=== PATIENT | male | born 1950 | race Caucasian/White ===

== ENCOUNTER 2016-10-31 17:36 | Inpatient (IN) | payer MEDICARE ==
[~2016-10-31] VITALS: Ht 167.6 cm; Wt 140.5 kg
[~2016-10-31 17:36] MED LIST: ASPI81TA2 PO; FURO-154 PO; GEMF600T3 PO; INSU100I3 SQ; INSU100V8 SQ; LISI-621 PO; METO50TA5 PO; NITR0.4T39 SL; SIMV20TA6 PO; WARF5TAB6 PO
--- OUTSIDE RECORDS SUMMARY | 2016-10-31 17:40 | XMS REPORT | Referral Summary ---
Author Author [facility] Organization [facility] Address Unknown Phone Unavailable Care Team Providers Care Centrifugal Casting Machine Tender Name Role Phone Afia Cosby Primary Care Physician [phone] Encounter VC Date(s): 07/07/16 - 07/07/16 [facility] [address] [place] [address] [place] [address]- Discharge Diagnosis: Family history of colon cancer Discharge Disposition: -Home or Self Care Attending Physician: Easton Rick MD Admitting Physician: Easton Rick MD Referring Physician: Dominik Cosby MD Vital Signs Most recent to 1 oldest [Reference Range]: Peripheral Pulse 80 bpm Rate [60-100 bpm] (07/07/16 9:21 AM) Respiratory Rate 18 br/min [14-20 br/min] (07/07/16 9:21 AM) Blood Pressure 128/78 mmHg [90-140/60-90 mmHg] (07/07/16 9:21 AM) SpO2 97 % (07/07/16 9:21 AM) Problem List Condition Effective Dates Status Health Status Informant Ankle < 03/13/14 Resolved sprain(Confirmed) Anticoagulant < 03/13/14 Resolved long-term use(Confirmed) Atrial fibrillation Active (disorder)(Confirmed ) Atrial Active fibrillation(Confirm ed) Backache Active (finding)(Confirmed) Benign essential Resolved hypertension (disorder)(Confirmed ) Benign Active hypertension(Confirm ed) Chronic back Active pain(Confirmed) Coronary Active arteriosclerosis (disorder)(Confirmed ) Coronary Active arteriosclerosis(Con firmed) Coronary artery < 03/13/14 Resolved disease(Confirmed) Heart Active disease(Confirmed) High Active cholesterol(Confirme d) Morbid Active obesity(Confirmed) Morbid < 11/27/14 Resolved obesity(Confirmed) Obesity Active (disorder)(Confirmed ) Obesity(Confirmed) < 03/13/14 Resolved Pure Active hypercholesterolemia (disorder)(Confirmed ) Pure < 03/13/14 Resolved hypercholesterolemia (Confirmed) Sprain of ankle Resolved (disorder)(Confirmed ) Type 2 < 03/13/14 Resolved diabetes(Confirmed) Allergies, Adverse Reactions, Alerts No Known Medication Allergies Medications aspirin 81 mg oral tablet, chewable 1 tabs, Oral, Daily, # 30 tabs, 0 Refill(s) Start Date: 12/11/13 Status: Ordered Colcrys 0.6 mg oral tablet See Instructions, 1 tabs Oral BID, # 20 tabs, eRx: [id number], 1 tabs Oral BID Start Date: 05/02/15 Status: Ordered furosemide 20 mg oral tablet 20 mg 1 tabs, Oral, Daily, # 90 tabs, 3 Refill(s), Pharmacy: [facility], 1 tabs Oral Daily Start Date: 04/15/16 Status: Ordered gemfibrozil 600 mg oral tablet 600 mg 1 tabs, Oral, BID, # 180 tabs, 3 Refill(s), Pharmacy: [facility], 1 tabs Oral BID Start Date: 04/15/16 Status: Ordered Lantus 100 units/mL subcutaneous solution See Instructions, INJECT 44 UNITS SUB-Q DAILY FOR DIABETES, # 10 mL, 5 Refill(s) , Pharmacy: [facility] Start Date: 04/27/16 Status: Ordered lisinopril 20 mg oral tablet 20 mg 1 tabs, Oral, Daily, # 90 tabs, 3 Refill(s), Pharmacy: [facility] Start Date: 04/15/16 Status: Ordered Metoprolol Tartrate 50 mg oral tablet 50 mg 1 tabs, Oral, BID, # 180 tabs, 3 Refill(s), Pharmacy: [facility], 1 tabs Oral BID Start Date: 04/15/16 Status: Ordered nitroglycerin 0.4 mg sublingual tablet 1 tabs, SubLingual, q5min, as needed for chest pain, # 25 tabs, 0 Refill(s), Pharmacy: [facility], 1 tabs SubLingual q5min,PRN:as needed for chest pain Start Date: 08/02/14 Status: Ordered NovoLOG 12 units, SubCutaneous, TIDAC, 0 Refill(s) Start Date: 04/28/16 Status: Ordered simvastatin 40 mg oral tablet 20 mg 0.5 tabs, Oral, Daily, # 45 tabs, 3 Refill(s), Pharmacy: [facility], 0.5 tabs Oral Daily Start Date: 04/15/16 Status: Ordered warfarin 1 mg oral tablet See Instructions, PT TAKES 9MG 3 days a week and 8mg 4 days a week, # 288 tabs , 1 Refill(s), Pharmacy: [facility], PT TAKES 9MG 3 days a week and 8mg 4 days a week Start Date: 04/15/16 Status: Ordered warfarin 1 mg oral tablet See Instructions, PT TAKES 9MG 2 days a week and 8mg 5 days a week, # 288 tabs , 1 Refill(s), Pharmacy: [facility], PT TAKES 9MG 2 days a week and 8mg 5 days a week Start Date: 10/21/15 Status: Ordered warfarin 5 mg oral tablet 5 mg 1 tabs, Oral, Daily, PT TAKES 9MG 3 DAYS AND 8MG 4 DAYS A WEEK, # 90 tabs, 1 Refill(s), Pharmacy: [facility], 1 tabs Oral Daily,Instr: PT TAKES 9MG 3 DAYS AND 8MG 4 DAYS A WEEK Start Date: 04/15/16 Status: Ordered Results No data available for this section Immunizations Given and Recorded Vaccine Date Status Refusal Reason tetanus/diphth/pertuss (Tdap) adult/adol 08/06/08 Recorded hepatitis B adult vaccine 07/06/12 Given hepatitis B adult vaccine 04/05/12 Given hepatitis B adult vaccine 01/06/12 Given influenza virus vaccine, inactivated 04/27/16 Given influenza virus vaccine, live 05/09/13 Given influenza virus vaccine, live 04/05/12 Given pneumococcal 13-valent conjugate vaccine 04/27/16 Given pneumococcal 23-polyvalent vaccine 11/05/09 Recorded Procedures Procedure Date Related Diagnosis Body Site Knee replacement - R1 Procedure - Anitcoagulation Removal - Benign cyst removed from back 1Bilat Social History Social History Type Response Smoking Status Former smoker; Type: Cigarettes Assessment and Plan Extracted from: Title: Office Visit Note Author: Easton Rick MD Date: 07/07/16 Assessment/Plan 1.Family history of colon cancer Ordered: Office Visit Level 4 New [id number] Plan: Colonoscopy. I did review the patient's chart including office note performed by his PCPfrom April 27, 2016. I informed the patient that with his family history for colon cancerand the fact that has been more than 10 years since his lastendoscopic evaluation of his colonI would recommend proceeding with repeat colonoscopy at this point in time. I did review a prior colonoscopy report from February 11, 2016. Colonoscopy was normal. I informed the patient that he will need to be off of his Coumadina few days prior to his procedure. I do not feel that we need to bridge the patientwith Lovenox. Risk of endoscopy was discussed with the patient. Risks include but are not inclusive of bleeding and/or perforation requiring surgery. Patient understood and was scheduled.
--- OUTSIDE RECORDS SUMMARY | 2016-10-31 17:40 | XMS REPORT | Referral Summary ---
Author Author [facility] Organization [facility] Address Unknown Phone Unavailable Care Team Providers Care Software Quality Assurance Specialist Name Role Phone Afia Cosby Primary Care Physician [phone] Encounter VC Date(s): 04/27/16 - 04/27/16 [facility] [address] [place] [address]- Discharge Diagnosis: Atrial fibrillation Discharge Diagnosis: Gout Discharge Diagnosis: Morbid obesity Discharge Diagnosis: FH: colon cancer Discharge Diagnosis: Benign hypertension Discharge Diagnosis: High cholesterol Discharge Diagnosis: Backache (finding) Discharge Diagnosis: DM (diabetes mellitus), type 2, uncontrolled Discharge Diagnosis: Anticoagulant long-term use Discharge Diagnosis: Coronary arteriosclerosis Discharge Disposition: 01-Home or Self Care Attending Physician: Dominik Cosby MD Admitting Physician: Dominik Cosby MD Vital Signs Most recent to 1 oldest [Reference Range]: Peripheral Pulse 80 bpm Rate [60-100 bpm] (04/27/16 2:43 PM) Blood Pressure 126/80 mmHg [90-140/60-90 mmHg] (04/27/16 2:43 PM) Problem List Condition Effective Dates Status Health [...] tabs Oral BID, # 20 tabs, eRx: [id number], 1 tabs Oral BID Start Date: 05/02/15 Status: Ordered furosemide 20 mg oral tablet 20 mg 1 tabs, Oral, Daily, # 90 tabs, 3 Refill(s), Pharmacy: [facility], 1 tabs Oral Daily Start Date: 04/15/16 Status: Ordered gemfibrozil 600 mg oral tablet 600 mg 1 tabs, Oral, BID, # 180 tabs, 3 Refill(s), Pharmacy: [facility], 1 tabs Oral BID Start Date: 04/15/16 Status: Ordered Lantus 100 units/mL subcutaneous solution See Instructions, INJECT 42 UNITS SUB-Q DAILY FOR DIABETES, # 10 mL, 5 Refill(s) , Pharmacy: [facility], INJECT 42 UNITS SUB-Q DAILY FOR DIABETES Start Date: 04/27/16 Status: Ordered lisinopril 20 mg oral tablet 20 mg 1 tabs, Oral, Daily, # 90 tabs, 3 Refill(s), Pharmacy: [facility] Start Date: 04/15/16 Status: Ordered Metoprolol Tartrate 50 mg oral tablet 50 mg 1 tabs, Oral, BID, # 180 tabs, 3 Refill(s), Pharmacy: [facility], 1 tabs Oral BID Start Date: 04/15/16 Status: Ordered nitroglycerin 0.4 mg sublingual tablet 1 tabs, SubLingual, q5min, as needed for chest pain, # 25 tabs, 0 Refill(s), Pharmacy: [facility], 1 tabs SubLingual q5min,PRN:as needed for chest pain Start Date: 08/02/14 Status: Ordered NovoLOG 100 units/mL subcutaneous solution 9 units, SubCutaneous, TIDAC, 10 units TID, # 3 mL, 3 Refill(s), Pharmacy: [facility], 9 units SubCutaneous TIDAC Start Date: 12/24/14 Status: Ordered simvastatin 40 mg oral tablet 20 mg 0.5 tabs, Oral, Daily, # 45 tabs, 3 Refill(s), Pharmacy: [facility], 0.5 tabs Oral Daily Start Date: 04/15/16 Status: Ordered warfarin 1 mg oral tablet See Instructions, PT TAKES 9MG 3 days a week and 8mg 4 days a week, # 288 tabs , 1 Refill(s), Pharmacy: [facility], PT TAKES 9MG 3 days a week and 8mg 4 days a week Start Date: 04/15/16 Status: Ordered warfarin 1 mg oral tablet See Instructions, PT TAKES 9MG 2 days a week and 8mg 5 days a week, # 288 tabs , 1 Refill(s), Pharmacy: [facility], PT TAKES 9MG 2 days a week and 8mg 5 days a week Start Date: 10/21/15 Status: Ordered warfarin 5 mg oral tablet 5 mg 1 tabs, Oral, Daily, PT TAKES 9MG 3 DAYS AND 8MG 4 DAYS A WEEK, # 90 tabs, 1 Refill(s), Pharmacy: [facility], 1 tabs Oral Daily,Instr: PT TAKES 9MG 3 DAYS AND 8MG 4 DAYS A WEEK Start Date: 04/15/16 Status: Ordered Results Coagulation Most recent to 1 oldest [Reference Range]: PT Venous (04/27/16 3:58 PM) INR [0.8-1.2] 3.8 1 *HI* (04/27/16 3:58 PM) 1Result Comment: Normal (no anticoagulant): 0.8 - 1.2 Units Routine Therapeutic Range: 2.0 - 3.0 Units High Risk Therapeutic Range: 2.5 - 3.5 Units Chemistry Most recent to 1 oldest [Reference Range]: Sodium Lvl [135-144 136 mEq/L mEq/L] (04/27/16 3:58 PM) Potassium Lvl 4.2 mEq/L [3.5-5.2 mEq/L] (04/27/16 3:58 PM) Chloride [99-111 102 mEq/L mEq/L] (04/27/16 3:58 PM) CO2 [23-31 mEq/L] 23 mEq/L (04/27/16 3:58 PM) AGAP [3-20] 11 (04/27/16 3:58 PM) BUN [8-26 mg/dL] 26 mg/dL (04/27/16 3:58 PM) Glucose Lvl [70-99 392 mg/dL mg/dL] *HI* (04/27/16 3:58 PM) Creatinine Lvl 1.34 mg/dL [0.72-1.25 mg/dL] *HI* (04/27/16 3:58 PM) eGFR [>60 mL/min] 53 mL/min 1 *ABN* (04/27/16 3:58 PM) Calcium Lvl 10.2 mg/dL [8.9-10.5 mg/dL] (04/27/16 3:58 PM) Uric Acid [3.5-7.2 7.9 mg/dL mg/dL] *HI* (04/27/16 3:58 PM) Total CK [30-200 103 U/L U/L] (04/27/16 3:58 PM) Hgb A1c [4.1-5.6 %] 10.0 % *HI* (04/27/16 3:58 PM) eAvg Glucose 240.3 mg/dL (04/27/16 3:58 PM) 1Result Comment: Multiply eGFR results by 1.21 for race. Immunizations Vaccine Date Refusal Reason tetanus/diphth/pertuss (Tdap) adult/adol 08/06/08 hepatitis B adult vaccine 07/06/12 hepatitis B adult vaccine 04/05/12 hepatitis B adult vaccine 01/06/12 influenza virus vaccine, inactivated 04/27/16 influenza virus vaccine, live 05/09/13 influenza virus vaccine, live 04/05/12 pneumococcal 13-valent conjugate vaccine 04/27/16 pneumococcal 23-polyvalent vaccine 11/05/09 Procedures Procedure Date Related Diagnosis Body Site Knee replacement - R1 Procedure - Anitcoagulation Removal - Benign cyst removed from back 1Bilat Social History Social History Type Response Smoking Status Former smoker; Type: Cigarettes Assessment and Plan Extracted from: Title: CRMMP Author: Dominik Cosby MD Date: 04/27/16 Impression and Plan Diagnosis DM (diabetes mellitus), type 2, uncontrolled (QWM96-DQ E11.65, Discharge, Medical). Benign hypertension (TXF90-QT I10, Discharge, Medical). High cholesterol (UMX93-TA E78.00, Discharge, Medical). Atrial fibrillation (DHT74-YQ I48.91, Discharge, Medical). Anticoagulant long-term use (GFN20-LM Z79.01, Discharge, Medical). Coronary arteriosclerosis (LAI05-SD I25.10, Discharge, Medical). Gout (JHY21-QT M10.9, Discharge, Medical). Backache (finding) (UJG61-JF M54.9, Discharge, Medical). Morbid obesity (TVG32-KX E66.01, Discharge, Medical). Orders Orders (Selected) Outpatient Orders Future (On Hold) Albumin/Creatinine Ratio, Urine: Albumin/Creatinine Ratio, Urine: BMP: CPK: Hgb A1c: Hgb A1c: PT/INR: Uric Acid: .
--- OUTSIDE RECORDS SUMMARY | 2016-10-31 17:40 | XMS REPORT | Continuity of Care Document ---
Author Author [facility] Organization [facility] Address Unknown Phone Unavailable Allergies Active Description Code Type Severity Reaction Onset Reported/Identified Relationship to Patient Clinical Status Yes No Known Medication Allergies NKMA N/A N/A 12/11/2013 Medications Problems Procedures Results Test Result Range Hemoglobin A1C - 10/26/16 10:00 Hemoglobin A1C 9.2 % 4.1-5.6 Estimated Average Glucose - 10/26/16 10:00 Estimated Average Glucose 217.3 mg/dL Encounters ACCT No. Visit Date/Time Discharge Status Pt. Type Provider Facility Loc./Unit Complaint [id number] 09/07/2013 08:32:00 09/07/2013 23 :59:59 CLS Outpatient [id number] 08/27/2013 16:10:00 08/27/2013 23 :59:59 CLS Outpatient [id number] 08/10/2013 10:44:00 08/10/2013 23 :59:59 CLS Outpatient
--- OUTSIDE RECORDS SUMMARY | 2016-10-31 17:41 | XMS REPORT | Continuity of Care Document ---
Author Author [facility] Organization [facility] Address Unknown Phone Unavailable Care Team Providers Care Scrap Kettle Tender Name Role Phone CORNELIUS MAYERS MD Primary Care Physician [phone] Insurance Providers Guarantor Yvrose Singh Address [address] [place] [address] Email DENIED/07/11/16 Payer [employer] Policy Number [id number] Subscriber's Name Yvrose Singh Relationship 18 Self Advance Directives Directive Response Recorded Date/Time Ordered Resuscitation Status Full Code 07/09/16 2:27pm Resuscitation Documents on File No 07/12/16 7:52am DPOA for Healthcare Only No 07/12/16 7:52am Living Will No 07/12/16 7:52am Problems Active Problems Medical Problem Onset Date Status Afib Unknown Chronic CAD (coronary artery disease) Unknown Chronic Dehydration Unknown Acute Gait instability Unknown Acute HLD (hyperlipidemia) Unknown Chronic HTN (hypertension) Unknown Chronic History of CVA (cerebrovascular accident) Unknown Chronic History of [place] (myocardial infarction) Unknown Chronic Hyperglycemia Unknown Acute Hypokalemia Unknown Acute Osteoarthritis Unknown Acute Stroke-like symptoms Unknown Acute Uncontrolled type 2 diabetes mellitus with complication Unknown Chronic Medications Current Home Medications Medication Dose Units Route Directions Days Qty Instructions Start Date Aspirin 81 Mg Tab.chew 1 Tab Oral Daily 07/12/16 Furosemide (Lasix) 20 Mg Tablet 1 Tab Oral Daily 12/13/14 Gemfibrozil 600 Mg Tablet 1 Tab Oral Ac 30 Minutes Twice A Day Insulin Aspart (Novolog Flexpen) 1 Unit Pen 12 Unit Sub-Q Before Meals 07/12/16 Insulin Glargine,Hum.rec.anlog (Lantus) 100 Unit/Ml Inj 40 Unit Sub-Q Bedtime 30 Days 12/16/14 Lisinopril 20 Mg Tablet 1 Tab Oral Daily 12/13/14 Metoprolol Tartrate 50 Mg Tablet 50 Mg Oral Twice Daily With Meals Take 1 tablet, by mouth, 2 times a day with meals. 12/13/14 Nitroglycerin 0.4 Mg Tab.subl 0.4 Mg Sublingual As Needed as needed for Chest Tightness 07/12/16 Simvastatin 20 Mg Tablet 20 Mg Oral Bedtime Take 1 tablet, by mouth , 1 time a day (at BEDTIME). 12/13/14 Warfarin Sodium 5 Mg Tablet 8 Mg Oral Give At Noon Take 1 - 5 tablet & 3 one mg tablets for a total of 8 mg 5 days a week Take 1 - 5 mg tab. and 4 - 1 mg tab. 2 days a week for a total of 9 mg warfarin 12/13/14 Past Home Medications Medication Directions Ordered Status Insulin Glargine,Hum.rec.anlog (Lantus) 100 Unit/Ml Inj, 33 Unit Sub-Q Bedtime 12/13/14 Discontinued Social History Social History Problem Response Recorded Date/Time Onset Date Status Reason for Hospitalization COLONOSCOPY 07/12/2016 9:26am Not Applicable Not Applicable Chewing Tobacco Status No 07/09/2016 11:52am Not Applicable Not Applicable Hx Substance Use No 07/09/2016 11:52am Not Applicable Not Applicable Hx Alcohol Use No 07/09/2016 11:52am Not Applicable Not Applicable Has the pt used tobacco in the last 12 months No 07/12/2016 7:54am Not Applicable Not Applicable Tobacco Usage none 12/14/2014 8:57am Not Applicable Not Applicable Query Response Start Date Stop Date Smoking Status Former smoker Hospital Discharge Instructions Instructions: Care Instructions: I was in the hospital because (patient own words): to have a colonoscopy Discharge Diet: As Tolerated Discharge Activity: Do NOT drive today Follow Up Appointments: Follow up with Dr. Albert as needed. Pending Lab / Results: Will be notified Patient Instructions: If biopsies performed during colonoscopy, results/recommendations will be mailed in about 2-3 weeks. If biopsies performed during EGD, results/recommendations will be mailed in about 1 week. Expected Signs/Symptoms: None Notify Physician If: Call physician if temperature is GREATER than 101.5, severe abdominal pain or severe rectal bleeding. During Business Hours:: Call [phone] After Business Hours:: Call [phone] (hospital) Pain Management/Treatment: Call Dr. Albert if increasing abdominal pain Wound/Incision Care: N/A Condition at time of discharge: Good Plan of Care Discharge Date 07/12/16 10:02am Instructions/Education Provided [facility] Prescriptions See Medication Section Functional Status Query Response Date Recorded Ability to complete ADL's impeded by No change July 12, 2016 7:52am Allergies, Adverse Reactions, Alerts Allergen Type Severity Reaction Status Last Updated No Known Drug Allergies Allergy Unknown Active 07/12/16 Immunizations Query Response on File Recorded Date/Time Hx Influenza Vaccination Y MAR 2016 07/09/16 11:52am Hx Pneumococcal Vaccination Y fall 201307/09/16 11:52am Hx Influenza Vaccination Y MAR 2016 07/09/16 11:52am Vital Signs Acute Vital Signs Vital Response Date/Time Temperature (Fahrenheit) 97.3 deg F (96.8 - 99.1) 07/12/2016 9:15am Temperature (Calculated Celsius) 36.12442 degrees C (36.0 - 37.3) 07/12/2016 9:15am Temperature Source Temporal 07/12/2016 9:15am Pulse Rate (adult) 76 bpm (60 - 100) 07/12/2016 10:00am Respiratory Rate 16 breaths/min (10 - 20) 07/12/2016 10:00am O2 Sat by Pulse Oximetry 94 % (90 - 100) 07/12/2016 10:00am Oxygen Delivery Method Room Air 07/12/2016 10:00am Blood Pressure 106/62 mm Hg 07/12/2016 10:00am Blood Pressure Source Automatic Cuff 07/12/2016 10:00am Height (Feet) 5 feet 07/12/2016 7:05am Height (Inches) 9.00 inches 07/12/2016 7:05am Weight (Kilograms) 138.000 kg 07/12/2016 7:05am Body Mass Index (BMI) 44.9 07/12/2016 7:05am Results Laboratory Results Test Name Result Units Flags Reference Collection Date/Time Result Date/ Time Comments Glucometer 132 mg/dL H 75-110 07/12/2016 7:11am 07/12/2016 8:14am Procedures Procedure Status Date Provider(s) Colonoscopy Completed 07/12/16 BUCKY ALBERT MD, FACS, CWS Encounters Encounter Location Arrival/Admit Date Discharge/Depart Date Attending Provider Departed [facility] 07/12/16 7:00am 07/12/16 10 :02am BUCKY ALBERT FACSS MD
--- OUTSIDE RECORDS SUMMARY | 2016-10-31 17:41 | XMS REPORT | Referral Summary ---
Author Author [facility], Family Medicine Organization [facility] Medicine Address Unknown Phone Unavailable Care Team Providers Care Watch Mechanic Name Role Phone Afia Cosby Primary Care Physician [phone] Encounter VC Date(s): 07/29/16 - 07/29/16 [facility], [address] [place] [id number] Discharge Diagnosis: DM (diabetes mellitus), type 2, uncontrolled Discharge Diagnosis: Morbid obesity Discharge Diagnosis: Coronary arteriosclerosis Discharge Diagnosis: Acute URI Discharge Diagnosis: High cholesterol Discharge Diagnosis: Atrial fibrillation Discharge Diagnosis: Anticoagulant long-term use Discharge Disposition: 01-Home or Self Care Attending Physician: Dominik Cosby MD Admitting Physician: Dominik Cosby MD Vital Signs Most recent to 1 oldest [Reference Range]: Peripheral Pulse 73 bpm Rate [60-100 bpm] (07/29/16 1:13 PM) Blood Pressure 120/78 mmHg [90-140/60-90 mmHg] (07/29/16 1:13 PM) Problem List Condition Effective Dates Status [...] tabs Oral BID, # 20 tabs, eRx: [id number], 1 tabs Oral BID Start Date: 05/02/15 Status: Ordered furosemide 20 mg oral tablet 20 mg 1 tabs, Oral, Daily, # 90 tabs, 3 Refill(s), Pharmacy: [facility] [employer] [facility], 1 tabs Oral Daily Start Date: 07/29/16 Status: Ordered gemfibrozil 600 mg oral tablet 600 mg 1 tabs, Oral, BID, # 180 tabs, 3 Refill(s), Pharmacy: [facility], 1 tabs Oral BID Start Date: 07/29/16 Status: Ordered Lantus 100 units/mL subcutaneous solution See Instructions, INJECT 44 UNITS SUB-Q DAILY FOR DIABETES, # 10 mL, 5 Refill(s) , Pharmacy: [facility] Start Date: 04/27/16 Status: Ordered lisinopril 20 mg oral tablet 20 mg 1 tabs, Oral, Daily, # 90 tabs, 3 Refill(s), Pharmacy: [facility] Start Date: 07/29/16 Status: Ordered Metoprolol Tartrate 50 mg oral tablet 50 mg 1 tabs, Oral, BID, # 180 tabs, 3 Refill(s), Pharmacy: [facility], 1 tabs Oral BID Start Date: 07/29/16 Status: Ordered nitroglycerin 0.4 mg sublingual tablet 1 tabs, SubLingual, q5min, as needed for chest pain, # 25 tabs, 0 Refill(s), Pharmacy: [facility], 1 tabs SubLingual q5min,PRN:as needed for chest pain Start Date: 08/02/14 Status: Ordered NovoLOG 14 units, SubCutaneous, TIDAC, 0 Refill(s) Start Date: 04/28/16 Status: Ordered simvastatin 40 mg oral tablet 20 mg 0.5 tabs, Oral, Daily, # 45 tabs, 3 Refill(s), Pharmacy: [facility], 0.5 tabs Oral Daily Start Date: 07/29/16 Status: Ordered warfarin 1 mg oral tablet See Instructions, PT TAKES 9MG 3 days a week and 8mg 4 days a week, # 288 tabs , 1 Refill(s), Pharmacy: [facility], PT TAKES 9MG 3 days a week and 8mg 4 days a week Start Date: 04/15/16 Status: Ordered warfarin 1 mg oral tablet See Instructions, PT TAKES 7MG 2 days a week and 8mg 5 days a week, # 288 tabs , 1 Refill(s), Pharmacy: [facility], PT TAKES 7MG 2 days a week and 8mg 5 days a week Start Date: 07/29/16 Status: Ordered warfarin 5 mg oral tablet 5 mg 1 tabs, Oral, Daily, PT TAKES 9MG 3 DAYS AND 8MG 4 DAYS A WEEK, # 90 tabs, 1 Refill(s), Pharmacy: [facility], 1 tabs Oral Daily,Instr: PT TAKES 9MG 3 DAYS AND 8MG 4 DAYS A WEEK Start Date: 07/29/16 Status: Ordered Results Coagulation Most recent to 1 oldest [Reference Range]: PT Venous (07/29/16 2:08 PM) INR [0.8-1.2] 4.4 1 *HHI* (07/29/16 2:08 PM) 1Result Comment: Critical INR rechecked and called to Marielle Ruth/Dr. Cosby @[phone] by pls. Normal (no anticoagulant): 0.8 - 1.2 Units Routine Therapeutic Range: 2.0 - 3.0 Units High Risk Therapeutic Range: 2.5 - 3.5 Units Chemistry Most recent to 1 oldest [Reference Range]: Sodium Lvl [135-144 144 mEq/L mEq/L] (07/29/16 2:08 PM) Potassium Lvl 4.0 mEq/L [3.5-5.2 mEq/L] (07/29/16 2:08 PM) Chloride [99-111 107 mEq/L mEq/L] (07/29/16 2:08 PM) CO2 [23-31 mEq/L] 25 mEq/L (07/29/16 2:08 PM) AGAP [3-20] 12 (07/29/16 2:08 PM) BUN [8-26 mg/dL] 18 mg/dL (07/29/16 2:08 PM) Glucose Lvl [70-99 197 mg/dL mg/dL] *HI* (07/29/16 2:08 PM) Creatinine Lvl 1.07 mg/dL [0.72-1.25 mg/dL] (07/29/16 2:08 PM) eGFR [>60 mL/min] >60 mL/min 1 (07/29/16 2:08 PM) Calcium Lvl 10.1 mg/dL [8.9-10.5 mg/dL] (07/29/16 2:08 PM) Hgb A1c [4.1-5.6 %] 9.5 % *HI* (07/29/16 2:08 PM) eAvg Glucose 226.0 mg/dL (07/29/16 2:08 PM) 1Result Comment: Multiply eGFR results by 1.21 for race. Immunizations Given and Recorded Vaccine Date Status [...] Procedures Procedure Date Related Diagnosis Body Site Colonoscopic polypectomy1 07/12/16 Colonoscopy 02/10/06 Knee replacement - R2 Procedure - Anitcoagulation Removal - Benign cyst removed from back 1Tubular adenoma at 25 cm and tubulovillous adenoma at anal verge, family history of colon cancer in mother, repeat colonoscopy in 3 years 2Bilat Social History Social History Type Response Smoking Status Former smoker; Type: Cigarettes Assessment and Plan Extracted from: Title: 3 Month CDM DM HTN Author: Dominik Cosby MD Date: 07/29/16 Impression and Plan Diagnosis Acute URI (UWM81-PY J06.9, Discharge, Medical). Anticoagulant long-term use (HVE29-MA Z79.01, Discharge, Medical). Atrial fibrillation (ZXJ62-JB I48.91, Discharge, Medical). Coronary arteriosclerosis (WHN58-JB I25.10, Discharge, Medical). DM (diabetes mellitus), type 2, uncontrolled (VBY25-WT E11.65, Discharge, Medical). High cholesterol (QGZ81-NX E78.00, Discharge, Medical). Morbid obesity (ZOS12-PN E66.01, Discharge, Medical). Orders Orders (Selected) Outpatient Orders Future (On Hold) BMP: Hgb A1c: PT/INR: .
[2016-10-31] MEDS ORDERED: INSU100V13 SQ (18:02)
[2016-10-31] MEDS ORDERED: SIMV40TA5 PO (18:02)
[2016-10-31] MEDS ORDERED: WARF1TAB6 PO (18:07)
[2016-10-31] MEDS ORDERED: INSU100V8 SQ (18:07)
--- NOTE | 2016-10-31 18:22 | ERPDOC ---
Departure Disposition Decision Date: October 31, 2016 Disposition Decision Time: 19:00 Disposition: 02 TO [facility] Impression Impression Impression: Primary Impression: Hypoxia Additional Impressions: CHF (congestive heart failure) Congestive heart failure type: unspecified congestive heart failure type Congestive heart failure chronicity: unspecified congestive heart failure chronicity Qualified Codes: I50.9 - Heart failure, unspecified COPD exacerbation Severity: Moderate Condition: Improved Seen By: Physician only Referrals: CORNELIUS MAYERS MD (PCP) Problems/Meds/Labs Reviewed?: Yes Medications reviewed and manag: Yes Follow up care ordered?: Yes Mental Status: Alert, Oriented HPI - General Medical General Chief Complaint: Dyspnea/Respdistress Stated Complaint: SOA Time Seen by Provider: 18:16 Source: patient, family Exam Limitations: no limitations HPI - General Medical Initial Comments 66 M presents to the ED with the chief complaint of a cough and shortness of breath. Patient noted onset of symptoms 3 days ago. Patient denies any pain or discomfort. Patient was exposed to his who has been ill with similar upper respiratory symptoms prior to the patient becoming ill. Patient has noted the cough to be productive of green sputum. Patient has also noted wheezing. He does not note any exacerbating or remitting factors. Patient is a former smoker who stopped approximately 20 years ago. No other complaints or associated symptoms. Patient was at home when his symptoms began. Symptoms have been persistent since onset in a gradual manner. Occurred At: home Onset: Gradual Allergies: Coded Allergies: No Known Drug Allergies (Verified Allergy, Unknown, 10/31/16) Past History Patient Surgical History Bilateral knee surgeries Past Medical History Metabolic: diabetes, hypercholesterolemia, hypertension Cardiac: A-fib, CAD Family History Family PMH: FOUND: diabetes, hypertension Vaccines Hx Influenza Vaccination: Yes (MAR 2016) Hx Pneumococcal Vaccination: Yes (fall 2013) Social History Smoking Status: Former smoker Does patient use chewing tobac: No # of Packs/Tins per Day: 2 # of Years: 32 Second Hand Exposure: No Substance Use Type: does not use Sexuality: female partner Review of Systems Constitutional Constitutional: DENIES: chills, fever Eyes General: DENIES: erythema, exudate Lids/Accessories: DENIES: erythema, swelling Vision: DENIES: acuity, blurring ENMT Ears: DENIES: drainage, erythema Hearing: DENIES: hearing loss Balance: DENIES: ataxia, falling to one side Sinuses: DENIES: congestion, pain Nose: DENIES: nosebleeds Mouth/Throat: DENIES: painful swallowing, sore throat Teeth: DENIES: pain Jaw: DENIES: pain Cardiovascular Cardiac: DENIES: chest pain, dyspnea on exertion Rhythm/Rate: DENIES: irregular beat, palpitations Vascular: DENIES: pedal edema, unilateral swelling Pulmonary Respiratory: cough, dyspnea, sputum, DENIES: pleuritic chest pain GI Upper Abdomen: DENIES: nausea, pain, vomiting Lower Abdomen: DENIES: diarrhea, pain General: DENIES: dysuria, frequency Musculoskeletal General: DENIES: joint pain, tenderness Integumentary Skin: DENIES: itching, rash Neurological General: DENIES: headache, numbness, weakness Psychiatric Psychiatric: DENIES: emotional instability, suicidal ideation/attempt Endocrine Endocrine: DENIES: polydipsia, polyphagia Hematologic/Lymphatic Hematologic/Lymphatic: DENIES: frequent nosebleeds, lymphadenopathy Allergic/Immunological Allergic/Immunoligical: DENIES: allergic reactions, hives Physical Exam General General Nourishment: well nourished, well developed, appears stated age, no acute distress, adult General Body Habitus: well groomed Vitals and Pain First Documented Vital Signs Date Time Temp Pulse Resp B/P Pulse Ox O2 Delivery O2 Flow Rate FiO2 10/31/16 17:40 97.5 89 26 135/79 89 Room Air 10/31/16 17:42 2.00 Weight: Kilograms: 135.200 Height (feet): 5 Height (inches): 9.00 Triage Pain Scale: RN VS reviewed by Provider: Yes Normal Exams: Head: Normocephalic w/o trauma Eyes: Pupils are PERRLA w/ EOMI, No scleral icterus, irritation, or foreign bodies noted ENMT: No facial trauma, nasal exudates, pharyngeal erythema, or exudates are noted Dental: No fractured, loose, or missing teeth noted Neck: Full range of motion, without adenopathy, JVD, bruits or thyromegaly Chest/Resp: with good airflow, and symmetry bilaterally CV: Regular rate and rhythm, without murmur or gallop, Pulses 2+ all extremities, capillary refill, <2 seconds all ext. Abdomen: Bowel sounds positive, soft, non-tender, non-distended, no hepatosplenomegaly, masses or bruits noted Lymphatic: No lymphadenopathy, or lymphedema noted Musculoskeletal: No tenderness, or deformity noted, good range of motion, all extremities Integumentary: No rashes, hives, or bruising noted, hair and nails, without abnormality Neurologic: Patient is alert, and oriented, cranial nerves, motor/sensory/ cerebellar, exams w/o gross deficits, to observation Psychiatric: Patient exhibits, appropriate attention, emotion and affect Respiratory (brief) Comments Bilateral End Expiratory Wheezes Cardiovascular (brief) Comments Trace BLE Edema. Differential Diagnoses Considering: Pneumonia, Other (COPD, Acute Bronchitis, CHF) Progress Results/Orders Orders Procedure Category Date Status Time Cbc W/Auto LAB 10/31/16 Complete Diff-Reflex Manual Cmp - Comprehensive LAB 10/31/16 Complete Metabolic Troponin I W LAB 10/31/16 Complete Hemolysis Index EKG EKG 10/31/16 Taken Chest 1 View RAD 10/31/16 Taken 18:16 Probnp LAB 10/31/16 Complete 18:16 Albuterol/Ipratropium PHA 10/31/16 Complete (Duoneb) 18:30 INR LAB 10/31/16 Complete Lab Results Laboratory Tests Test 10/31/16 18:29 10/31/16 18:30 Prothromb Time International Ratio 3.87 White Blood Count 8.8T/MM3 Red Blood Count 4.09M/MM3 Hemoglobin 12.4GM/DL Hematocrit 36.3% Mean Corpuscular Volume 88.8UM3 Mean Corpuscular Hemoglobin 30.3UUG Mean Corpuscular Hemoglobin Concent 34.2GM/DL RDW Standard Deviation 43.3FL Platelet Count 190T/MM3 Mean Platelet Volume 10.9UM3 Immature Granulocyte % (Auto) 0.3% Neutrophils (%) (Auto) 77.8% Lymphocytes (%) (Auto) 13.5% Monocytes (%) (Auto) 6.7% Eosinophils (%) (Auto) 1.6% Basophils (%) (Auto) 0.1% Absolute Immature Granulocyte (auto 0.03T/MM3 Absolute Neutrophils (auto) 6.9T/MM3 Absolute Lymphocytes (auto) 1.2T/MM3 Absolute Monocytes (auto) 0.6T/MM3 Absolute Eosinophils (auto) 0.1T/MM3 Absolute Basophils (auto) 0.0T/MM3 Turbidity < 20 Sodium Level 150MEQ/L Potassium Level 2.9MEQ/L Chloride Level 108MEQ/L Carbon Dioxide Level 25MEQ/L Anion Gap 17MEQ/L Blood Urea Nitrogen 22.0MG/DL Creatinine 0.7MG/DL Glomerular Filtration Rate Calc 112 BUN/Creatinine Ratio 31RATIO Glucose Level 174MG/DL Calculated Osmolality 295MOSM/KG Calcium Level 9.4MG/DL Total Bilirubin 1.10MG/DL Icterus Index < 2 Aspartate Amino Transf (AST/SGOT) 27U/L Alanine Aminotransferase (ALT/SGPT) 36U/L Alkaline Phosphatase 62U/L Troponin I < 0.012ng/ml MV-Yul-W-Type Natriuretic Peptide 2880PG/ML Total Protein 6.9G/DL Albumin 3.7G/DL Globulin 3.2G/DL Albumin/Globulin Ratio 1.2RATIO Chemistry Specimen Hemolysis < 15 Medications Current ED Medications Albuterol/ Ipratropium (Duoneb) 3 ml O ONCE AEROSOL Last administered on t 18:20; Start 10/31/16 at 18:30; Stop 10/31/16 at 18:31; Status DC Progress Progress Labs / imaging were discussed in detail with the patient and questions are answered. Patient is given nebulized albuterol treatments in the emergency department with improvement of symptoms. Patient is given [place] 125 mg IV times one. Patient is started on doxycycline 100 mg IV times one. Patient is given Lasix 40 mg IV times one. Patient was given 40 mg of potassium by mouth 1 and another 40 mEq were ordered intravenously. Patient and family are in agreement with the current plan of management. Patient is discussed with the hospitalist Dr. Troy Arana admitted to the service of Dr. Felisha Mac in improved condition. Patient and family are in agreement with the current plan of management. Patient is admitted to the hospital in improved condition. No further orders from accepting physician who are in agreement with the current plan of management. Patient was hypoxic at 88% upon arrival to the emergency Department. Patient does not use home oxygen. Patient was requiring supplemental oxygen in the emergency department. EKG EKG : Rate: 60-100 Rhythm: atrial fibrillation [place]: normal QRS: normal Intervals: normal ST/T: normal Interpreted by: signing physician Xray Xray : Xray: CXR Portable Interpretation: Abnormal (mild central pulmonary vascular congestion. Otherwise no acute processes. Cardiomegaly.), Faxed Report NIMA GATICA DO October 31, 2016 18:22
[2016-10-31] MEDS ORDERED: ALBUTEROL/IPRATROPIUM INHAL. 2.5mg-0.5mg/3ml Neb. AEROSOL ONE (18:30)
--- NOTE | 2016-10-31 18:30 | NUR ---
XR Portable in room
[2016-10-31 18:36] LABS: BASOPHILS % (AUTO) 0.1 % (0-2); EOSINOPHILS # (AUTO) 0.1 T/MM3 (0-0.5); EOSINOPHILS % (AUTO) 1.6 % (0-4); HCT - HEMATOCRIT 36.3 % (41-53); HGB - HEMOGLOBIN 12.4 GM/DL (13.5-17.5); IMMATURE GRANULOCYTE # (AUTO) 0.03 T/MM3 (0.00-0.03); IMMATURE GRANULOCYTE % (AUTO) 0.3 % (0.0-0.5); LYMPHOCYTES # (AUTO) 1.2 T/MM3 (1-4.8); LYMPHOCYTES % (AUTO) 13.5 % (23-45); MEAN CORPUSCULAR HGB 30.3 UUG (26-34); MEAN CORPUSCULAR HGB CONC(MCHC 34.2 GM/DL (31-37); MEAN CORPUSCULAR VOLUME 88.8 UM3 (80-100); MEAN PLATELET VOLUME 10.9 UM3 (9.4-12.4); MONOCYTES # (AUTO) 0.6 T/MM3 (0-0.8); MONOCYTES % (AUTO) 6.7 % (0-9.0); NEUTROPHILS #(AUTO)-ABSOLUTE 6.9 T/MM3 (1.8-7.7); NEUTROPHILS % (AUTO) 77.8 % (33-66); RED BLOOD COUNT 4.09 M/MM3 (4.50-5.90); WBC - WHITE BLOOD COUNT 8.8 T/MM3 (4.5-11.0)
[2016-10-31 18:40] LABS: INR 3.87 (0.76-1.04); PROTHROMBIN TIME 42.2 SEC (9.31-12.49)
[2016-10-31 18:45] LABS: ALBUMIN 3.7 G/DL (3.5-5.0); ALBUMIN/GLOBULIN RATIO 1.2 RATIO (1.1-2.2); ALKALINE PHOSPHATASE 62 U/L (38-126); ALT (SGPT) 36 U/L (21-72); ANION GAP 17 MEQ/L (5-15); AST (SGOT) 27 U/L (17-59); BUN/CREATININE RATIO 31 RATIO (6-26); CALCIUM 9.4 MG/DL (8.4-10.2); CHLORIDE 108 MEQ/L (98-107); CO2 - CARBON DIOXIDE 25 MEQ/L (22-30); CREATININE 0.7 MG/DL (0.8-1.5); GLOMERULAR FILTRATION RATE 112; GLUCOSE 174 MG/DL (75-110); SODIUM 150 MEQ/L (134-144); TOTAL PROTEIN 6.9 G/DL (6.3-8.2)
--- OUTSIDE RECORDS SUMMARY | 2016-10-31 19:00 | XMS REPORT | Continuity of Care Document ---
Author Author [facility] Organization [facility] Address Unknown Phone Unavailable Allergies Active Description [...] Status Pt. Type Provider Facility Loc./Unit Complaint [id number] 09/07/2013 08:32:00 09/07/2013 23 :59:59 CLS Outpatient [id number] 08/27/2013 16:10:00 08/27/2013 23 :59:59 CLS Outpatient [id number] 08/10/2013 10:44:00 08/10/2013 23 :59:59 CLS Outpatient
[2016-10-31 19:30] LABS: POTASSIUM 2.9 MEQ/L (3.6-5)
[2016-10-31] MEDS ORDERED: PROMETHAZINE 25 MG INJECTION IV PRN (19:30)
[2016-10-31] MEDS ORDERED: MORPHINE SULFATE 2 MG SYRINGE IV PRN (19:30)
[2016-10-31] MEDS ORDERED: ACETAMINOPHEN 325 MG TABLET PO PRN (19:30)
[2016-10-31] MEDS ORDERED: FUROSEMIDE 40 MG/4 ML INJECTION IV ONE (19:30)
[2016-10-31] MEDS ORDERED: ONDANSETRON 4mg/2ml INJECTION IV PRN (19:30)
[2016-10-31] MEDS ORDERED: MILK OF MAGNESIA 30 ML SUSP PO PRN (19:30)
[2016-10-31] MEDS ORDERED: HYDROCODONE/APAP 5 mg/325 mg TABLET PO PRN (19:30)
--- NOTE | 2016-10-31 19:33 | HPPDOC ---
MERCY MEZA MD 10/31/16 1933: HPI - Adult Date DATE: 10/31/16 TIME: 19:28 General Chief Complaint: SOA History of Present Illness 66-year-old white male presents to the emergency room with 3-4 days of progressive shortness of breath and dyspnea on exertion. He has had a slightly productive cough of green sputum, was found in the emergency room to be satting 88% saturation on room air. Satting in the low 90s on 2-3 L there. He described himself as feeling "clammy in the chest", he is coughing up phlegm. He denies having edema in his legs though we will reexamine his does notice that he is more swollen than usual. He denies any significant salty dietary indiscretions and he denies chest pain. He did have some fever chills 2 nights ago subjective. His has had some cold symptoms and they thought it was probably similar. He was wheezing in the breathing treatment he received in the emergency room helped. He also received potassium chloride and Solu-Medrol in the emergency room. He denies any history of congestive heart failure. He has had 2 heart attacks in the past that was 20 years ago there were 2 years apart he denies percutaneous intervention. 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 He denies focal numbness tingling or weakness. He denies any urinary symptoms. He has been constipated intermittently. He does snore but denies ever being tested for sleep apnea. Past Medical History Past Medical History Diabetes mellitus type 2 History of CVA Atrial fibrillation Hypertension Coronary artery disease Hyperlipidemia Surgical History Patient's Surgical History: Bilateral knee replacement Current Medications Home Meds Reported Medications Insulin Glargine,Hum.rec.anlog (Lantus) 100 Unit/Ml Inj, 47 UNIT SQ HS 10/31/16 Warfarin Sodium (Warfarin Sodium) 1 Mg Tablet, 3 MG PO DAILY TAKE WITH 5 MG TO EQUAL 8 MG DAILY 10/31/16 Simvastatin (Simvastatin) 40 Mg Tablet, 20 MG PO HS 10/31/16 Insulin Aspart (Novolog) 100 Unit/Ml Inj, 17 UNIT SQ TIDWM 10/31/16 Aspirin (Aspirin) 81 Mg Tab.chew, 81 MG PO DAILY 07/12/16 Nitroglycerin (Nitroglycerin) 0.4 Mg Tab.subl, 0.4 MG SL Q5MIN Y for CHEST PAIN 07/12/16 Metoprolol Tartrate (Metoprolol Tartrate) 50 Mg Tablet, 50 MG PO BIDWM 12/13/14 Furosemide (Lasix) 20 Mg Tablet, 20 MG PO DAILY 12/13/14 Warfarin Sodium (Warfarin Sodium) 5 Mg Tablet, 8 MG PO NOON TAKE WITH 3 MG TO EQUAL 8 MG DAILY 12/13/14 Gemfibrozil (Gemfibrozil) 600 Mg Tablet, 600 MG PO BID 12/13/14 Lisinopril (Lisinopril) 20 Mg Tablet, 20 MG PO DAILY 12/13/14 Allergies: Coded Allergies: No Known Drug Allergies (Verified Allergy, Unknown, 10/31/16) Family History Family History: nc based on age Social History Smoking Status: Former smoker Does patient use chewing tobac: No # of Packs/Tins per Day: 2 # of Years: 32 Second Hand Exposure: No Substance Use Type: does not use Sexuality: female partner Advance Directives: Yes Full Code Review of Systems All Other Systems All Other Systems: Reviewed (remainder of 10-point ROS Neg.) Physical Exam General General Nourishment: obese, apparent age Vital Signs Vital Signs Date Time Temp Pulse Resp B/P Pulse Ox O2 Delivery O2 Flow Rate FiO2 10/31/16 18:18 26 10/31/16 17:40 97.5 89 135/79 89 Room Air Height (Feet): 5 Height (Inches): 9.00 Eyes Brief: FOUND: PERRL Respiratory Brief: FOUND: equal bilaterally, symmetrical, wheezes Comments impaired air mvt Respiratory Inspection: FOUND: tachypnea Cardiovascular (brief) Cardiac Brief: FOUND: peripheral edema, regular rate, NOT FOUND: regular rhythm Abdomen (brief) Abdominal Brief: FOUND: BS normo active x4, soft, NOT FOUND: tender Neurologic (brief) Neurological Brief: FOUND: cranial 2-12 intact, NOT FOUND: facial droop Neurologic RN Documented GCS Eye Opening: Verbal: Motor: Total: Psychiatric (brief) FOUND: alert, normal affect, oriented Laboratory Laboratory Tests Test 10/31/16 18:29 10/31/16 18:30 Prothromb Time International Ratio 3.87 White Blood Count 8.8T/MM3 Red Blood Count 4.09M/MM3 Hemoglobin 12.4GM/DL Hematocrit 36.3% Mean Corpuscular Volume 88.8UM3 Mean Corpuscular Hemoglobin 30.3UUG Mean Corpuscular Hemoglobin Concent 34.2GM/DL RDW Standard Deviation 43.3FL Platelet Count 190T/MM3 Mean Platelet Volume 10.9UM3 Immature Granulocyte % (Auto) 0.3% Neutrophils (%) (Auto) 77.8% Lymphocytes (%) (Auto) 13.5% Monocytes (%) (Auto) 6.7% Eosinophils (%) (Auto) 1.6% Basophils (%) (Auto) 0.1% Absolute Immature Granulocyte (auto 0.03T/MM3 Absolute Neutrophils (auto) 6.9T/MM3 Absolute Lymphocytes (auto) 1.2T/MM3 Absolute Monocytes (auto) 0.6T/MM3 Absolute Eosinophils (auto) 0.1T/MM3 Absolute Basophils (auto) 0.0T/MM3 Turbidity < 20 Sodium Level 150MEQ/L Chloride Level 108MEQ/L Carbon Dioxide Level 25MEQ/L Anion Gap 17MEQ/L Blood Urea Nitrogen 22.0MG/DL Creatinine 0.7MG/DL Glomerular Filtration Rate Calc 112 BUN/Creatinine Ratio 31RATIO Glucose Level 174MG/DL Calculated Osmolality 295MOSM/KG Calcium Level 9.4MG/DL Total Bilirubin 1.10MG/DL Icterus Index < 2 Aspartate Amino Transf (AST/SGOT) 27U/L Alanine Aminotransferase (ALT/SGPT) 36U/L Alkaline Phosphatase 62U/L Troponin I < 0.012ng/ml UO-Eji-X-Type Natriuretic Peptide 2880PG/ML Total Protein 6.9G/DL Albumin 3.7G/DL Globulin 3.2G/DL Albumin/Globulin Ratio 1.2RATIO Chemistry Specimen Hemolysis < 15 EKG afib, low voltage, non specific T wave flattening Radiology CXR reported with pulm edema Assessment & Plan Problems: (1) Acute bronchitis Status: Acute Assessment & Plan: PO levaquin scheduled, is on warfarin will need to monitor his INR carefully on antibiotics. With his Wheezing he has received a dose of Solu-Medrol in the emergency room. I did not order any further dosing, would like to see if Lasix and breathing treatments can do this alone without increasing his sugars and potentially fluid retention. (2) Acute congestive heart failure with left ventricular diastolic dysfunction Status: Acute Assessment & Plan: This is a possible dx right now, but concern with CXR and LE edema this is the case. Echocardiogram in 2015 demonstrated EF of 75%, chest x-ray appears consistent with pulmonary vascular congestion, formal interp pending and with body habitus this could be making it look more like edema than it is. There is a confounder of his history of smoking and some green sputum as well. He will received a dose of IV Lasix a concern with a history of coronary disease and edema that he could have perhaps a new process. Certainly treating him as he has heart failure for the moment, superimposed upon a bronchitis. We will repeat echocardiogram at morning and will rule out for myocardial infarction with serial enzymes. (3) Hypoxia Status: Acute Assessment & Plan: Probably due to a combination of bronchitis and congestive heart failure. See above. Repeat echocardiogram in spirometry I think appropriate (4) CAD (coronary artery disease) Status: Chronic Assessment & Plan: I do not have details as to his anatomy etc. stress test. May not be a bad idea to update this depending on how he does tomorrow with the treatments recommended above and depending on his echocardiogram. (5) HTN (hypertension) Status: Chronic (6) Afib Status: Chronic Assessment & Plan: Appears rate controlled, had been on metoprolol the past. INR is therapeutic (7) Uncontrolled type 2 diabetes mellitus with complication Status: Chronic Assessment & Plan: home insulin 17 units NovoLog with meals and 44 units of Lantus will continue along with correctional dose with him receiving a dose of steroids in the emergency room. 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 DVT Prophylaxis: SCD'S, Coumadin Code Status Full Code Hospital Course Summary Disclaimer The hospital course summary below is not to be considered part of the above Progress Note. MILTON SHELTON MD 11/01/16 1107: Past Medical History Current Medications Home Meds Reported Medications Insulin Glargine,Hum.rec.anlog (Lantus) 100 Unit/Ml Inj, 47 UNIT SQ HS 10/31/16 Warfarin Sodium (Warfarin Sodium) 1 Mg Tablet, 3 MG PO DAILY TAKE WITH 5 MG TO EQUAL 8 MG DAILY 10/31/16 Simvastatin (Simvastatin) 40 Mg Tablet, 20 MG PO HS 10/31/16 Insulin Aspart (Novolog) 100 Unit/Ml Inj, 17 UNIT SQ TIDWM 10/31/16 Aspirin (Aspirin) 81 Mg Tab.chew, 81 MG PO DAILY 07/12/16 Nitroglycerin (Nitroglycerin) 0.4 Mg Tab.subl, 0.4 MG SL Q5MIN Y for CHEST PAIN 07/12/16 Metoprolol Tartrate (Metoprolol Tartrate) 50 Mg Tablet, 50 MG PO BIDWM 12/13/14 Furosemide (Lasix) 20 Mg Tablet, 20 MG PO DAILY 12/13/14 Warfarin Sodium (Warfarin Sodium) 5 Mg Tablet, 8 MG PO NOON TAKE WITH 3 MG TO EQUAL 8 MG DAILY 12/13/14 Gemfibrozil (Gemfibrozil) 600 Mg Tablet, 600 MG PO BID 12/13/14 Lisinopril (Lisinopril) 20 Mg Tablet, 20 MG PO DAILY 12/13/14 Allergies: Coded Allergies: No Known Drug Allergies (Verified Allergy, Unknown, 10/31/16) Assessment & Plan Assessment 11/01/2016-Dr. Shelton I have seen and examined the patient independently. I've reviewed the H&P above and agree. Please see my additions below. Chief complaint: Shortness of breath History of present illness: The patient states that he's been short of breath since last Tuesday which would be approximately 5 days. He is also had a productive cough with green phlegm which is new to him. He has also had new pedal edema. He states he was very short of breath especially with activity. He presented to the emergency room last night and was started on oxygen and received a breathing treatment IV Solu-Medrol and IV Lasix. He states this morning he feels much better. He denies having any chest pains or pressure. He denies any headache or abdominal pain. He states he was constipated and then took some Dulcolax and then had diarrhea last night. He denies any nausea or vomiting. He has diabetes and states he checks his blood sugar about once a week even though he was told to check it 5 times a day. He denies any other complaints at this time. Past medical history is significant for diabetes, history of CVA, atrial fibrillation, hypertension, coronary artery disease with history of UT, and hyperlipidemia. He has occasional gout in his left foot. None now. Past Echocardiogram showed diastolic dysfunction. Patient is on Lasix daily. Social history reveals the patient to be and he formerly smoked but quit 20 years ago Comprehensive review of systems is negative other than the above in history of present illness Physical exam Patient is afebrile and vital signs are stable. He is on 2 L of oxygen. The patient is alert and oriented 3 and in no acute distress. HEENT reveals sclerae to be anicteric and oropharynx is moist. Neck is supple. Carotids are silent. Chest reveals some decreased breath sounds in the bases but no wheezes, rhonchi or crackles. Cardiovascular reveals an irregularly irregular rhythm with a well-controlled rate. No murmur. Abdomen is obese, soft, nontender, nondistended with positive bowel sounds. Extremities reveal trace pedal and pretibial edema. Skin is warm and dry and without rashes. Lab today shows sodium of 147 down from 150, BUN 27, creatinine 0.8 up from 0.7. Glucose 288. Troponin normal 3. White count is 7.7 down from 8.8. Hemoglobin 12.9. Neutrophils 89% and bands 1%. INR is elevated at 4.5 up from 3.87 ProBNP yesterday was 2880 and when last checked in 2014 was 840 and 911 Chest x-ray today shows cardiomegaly without overt CHF. Lungs are clear without pneumonia or signs of edema. Impression Acute hypoxic respiratory failure Bronchitis with possible COPD exacerbation Possible mild exacerbation of heart failure. Type 2 diabetes mellitus, currently poorly controlled Supratherapeutic INR in a patient on Coumadin Atrial fibrillation-rate controlled Obesity Hypernatremia-improved Coronary artery disease Hypertension Hyperlipidemia Plan Await echocardiogram, decrease IV Lasix to once daily. Continue supplemental oxygen as needed. Continue breathing treatments. Change to oral prednisone. Hold Coumadin for now and consult pharmacy for Coumadin management Check hemoglobin A1c and TSH Recheck CBC and basic metabolic profile tomorrow Obtain sputum culture and viral respiratory panel MERCY MEZA MD October 31, 2016 19:33 MILTON SHELTON MD November 01, 2016 11:07
--- OUTSIDE RECORDS SUMMARY | 2016-10-31 19:35 | XMS REPORT | Continuity of Care Document ---
Author Author [facility] Organization [facility] Address Unknown Phone Unavailable Allergies [...] Status Pt. Type Provider Facility Loc./Unit Complaint [id number] 09/07/2013 08:32:00 09/07/2013 23 :59:59 CLS Outpatient [id number] 08/27/2013 16:10:00 08/27/2013 23 :59:59 CLS Outpatient [id number] 08/10/2013 10:44:00 08/10/2013 23 :59:59 CLS Outpatient
[2016-10-31] MEDS ORDERED: POTASSIUM CHLORIDE 10 MEQ in WATER FOR INJECTION 100 ML IV SCH (19:45)
[2016-10-31] MEDS ORDERED: POTASSIUM CHLORIDE 20 MEQ TABLET PO ONE (19:45)
[2016-10-31 20:19] VITALS: Ht 167.6 cm; Wt 140.5 kg
[2016-10-31 20:27] VITALS: BP 159/96; PULSE 120; RESP 22; TEMP 96.1; O2SAT 93
--- NOTE | 2016-10-31 20:30 | NUR ---
ADMIT PT WAS ADMITTED TO [facility] AT 2009. ACCOMPANIED BY HIS AND ER STAFF. PT TRANSFERRED HIMSELF FROM A CART TO THE BED. ALERT AND ORIENTED. DENIED ANY PAIN. ON 2L/NC O2.
[2016-10-31] MEDS: POTASSIUM CHLORIDE 10 MEQ, LIDOCAINE 1% 10 MG in NORMAL SALINE 100 ML IV SCH ×3 (20:55→23:35)
[2016-10-31] MEDS ORDERED: DOXYCYCLINE 100 MG in NORMAL SALINE 250 ML IV SCH (21:00)
[2016-10-31] MEDS ORDERED: NITROGLYCERIN 0.4 MG SUBLINGUAL TABLET SL PRN (21:15)
[2016-10-31] MEDS ORDERED: DEXTROSE 50% SYRINGE 50ml (Eq. 1 AMP) IV PRN (21:15)
[2016-10-31] MEDS ORDERED: GLUCOSE ORAL GEL 40% 37.5 G TUBE PO PRN (21:15)
[2016-10-31] MEDS ORDERED: LEVOFLOXACIN 750 MG TABLET PO SCH (21:15)
[2016-10-31] MEDS ORDERED: ALBUTEROL INH.SOLN. 2.5mg/3ml (0.083%) Neb. AEROSOL PRN (21:30)
[2016-10-31] MEDS: INSULIN GLARGINE 100 UNIT/ML SQ SCH (21:32)
[2016-10-31] MEDS: INSULIN ASPART 100 UNIT/ML SQ PRN (21:32)
[2016-10-31] MEDS: SIMVASTATIN 40 MG TABLET PO SCH (21:33)
[2016-10-31 21:55] VITALS: PULSE 82; RESP 18; O2SAT 94
--- NOTE | 2016-10-31 23:45 | NUR ---
STATUS PT ASSISTED TO THE BATHROOM ONE PERSON ASSIST. NO BM AT THIS MOMENT. PT SAID HE HAD ONE YESTERDAY.
[2016-10-31 23:46] VITALS: RESP 22
[2016-11-01] VITALS (9 sets, daily range): BP systolic 112–135; BP diastolic 68–95; PULSE 89–97; RESP 18–24; TEMP 96–97.4; O2SAT 93–96
[2016-11-01] MEDS: POTASSIUM CHLORIDE 10 MEQ, LIDOCAINE 1% 10 MG in NORMAL SALINE 100 ML IV SCH (00:53)
[2016-11-01 05:37] LABS: HCT - HEMATOCRIT 37.9 % (41-53); HGB - HEMOGLOBIN 12.9 GM/DL (13.5-17.5); MEAN CORPUSCULAR HGB 30.3 UUG (26-34); MEAN PLATELET VOLUME 11.6 UM3 (9.4-12.4); RED BLOOD COUNT 4.26 M/MM3 (4.50-5.90); WBC - WHITE BLOOD COUNT 7.7 T/MM3 (4.5-11.0)
[2016-11-01 05:52] LABS: ANION GAP 17 MEQ/L (5-15); BUN/CREATININE RATIO 34 RATIO (6-26); CALCIUM 9.6 MG/DL (8.4-10.2); CHLORIDE 109 MEQ/L (98-107); CO2 - CARBON DIOXIDE 21 MEQ/L (22-30); CREATININE 0.8 MG/DL (0.8-1.5); GLOMERULAR FILTRATION RATE 96; GLUCOSE 288 MG/DL (75-110); POTASSIUM 3.6 MEQ/L (3.6-5); SODIUM 147 MEQ/L (134-144)
[2016-11-01 05:56] LABS: INR 4.5 (0.76-1.04)
--- NOTE | 2016-11-01 06:09 | NUR ---
SUMMARY PT IS ALERT AND ORIENTED. DENIED ANY PAIN THIS SHIFT. PT IS ONE PERSON STANDBY ASSIST WITH AMBULATION. ASSISTED TWICE TO THE BATHROOM. PT IS INCONTINENT OF BM. USES URINAL FOR BLADDER ELIMINATION. ON 2L/NC O2 THAT HE TOLERATES WELL. PT IS WHEEZING AND SOA WITH ACTIVITIES. EDUCATED INDUSTRIAL HYGIENIST LIGHT USE AND PT SAFETY.
[2016-11-01 06:14] LABS: BAND NEUTROPHILS # 0.1 T/MM3; EOSINOPHILS # (MANUAL) 0.2 T/MM3 (0-0.5); LYMPHOCYTES # (MANUAL) 0.6 T/MM3 (1-4.8); NEUTROPHILS #(MANUAL)-ABSOLUTE 6.9 T/MM3 (1.8-7.7); TOTAL CELLS COUNTED 100 %
[2016-11-01] MEDS: INSULIN ASPART 100 UNIT/ML SQ PRN ×4 (06:23→21:38)
[2016-11-01] MEDS ORDERED: FUROSEMIDE 40 MG/4 ML INJECTION IV SCH (09:00)
--- NOTE | 2016-11-01 09:11 | DI ---
Indication: ITS.REASON: cough, sob PROCEDURE: CHEST 1 VIEW: Encounter: Initial Comparison: 12/14/2014 Findings: There is cardiomegaly and pulmonary vascular congestion without overt interstitial pulmonary edema. No pleural effusion. No pneumothorax. Trachea is midline. There is moderate calcification of the transverse thoracic aorta without significant tortuosity of the descending thoracic aorta. Impression: Cardiomegaly and pulmonary vascular congestion without overt CHF. .
--- NOTE | 2016-11-01 09:36 | DI ---
INDICATION: ITS.REASON: hypoxia PROCEDURE: CHEST 2-VIEWS UPRIGHT (PA \T\ LAT) Encounter: Initial COMPARISON: 10/31/2016 FINDINGS: The lungs are clear without evidence of focal abnormal airspace opacity. There is no pleural effusion or pneumothorax. Trachea is midline. There is no significant tortuosity of the descending thoracic aorta. There is mild cardiomegaly. No definite pulmonary vascular congestion or interstitial pulmonary edema. There is no significant skeletal abnormality. IMPRESSION: Cardiomegaly without overt CHF. .
[2016-11-01] MEDS: LISINOPRIL 20 MG TABLET PO SCH (10:04)
[2016-11-01] MEDS: ASPIRIN 81 MG CHEWABLE TABLET PO SCH (10:04)
[2016-11-01] MEDS: INSULIN ASPART 100 UNIT/ML SQ SCH ×3 (10:05→17:45)
[2016-11-01] MEDS: GEMFIBROZIL 600 MG TABLET PO SCH ×2 (10:05→20:49)
--- NOTE | 2016-11-01 10:08 | NUR ---
WARFARIN CONSULT S: 66 y/o M on warfarin for afib. Home dose is 8 mg daily. Goal INR 2-3. O: Date INR Warfarin Dose 11/01 4.50 HOLD A/P: INR supratherapeutic. Drug-drug interaction between warfarin and levofloxacin (increases INR). Will hold warfarin today. Will continue to monitor & make adjustments accordingly. Thank you for the consult. Aidee Ochoa, PharmD, BCPS
[2016-11-01 11:55] LABS: HEMOGLOBIN A1C 9.4 % (6.1-7.9)
[2016-11-01] MEDS ORDERED: WARFARIN 3 MG TABLET PO SCH (12:00)
[2016-11-01] MEDS: PredniSONE 10 MG TABLET PO SCH (12:15)
[2016-11-01 12:29] LABS: THYROID STIM HORMONE-TSH 0.39 MIU/L (0.47-4.68)
[2016-11-01] MEDS ORDERED: ALBUTEROL/IPRATROPIUM INHAL. 2.5mg-0.5mg/3ml Neb. AEROSOL SCH (13:00)
--- NOTE | 2016-11-01 15:19 | NUR ---
CM CM IN TO VISIT PT. CM EXPLAINED ROLL AND PROVIDED CONTACT INFORMATION. PT REPORTS HE PLANS TO GO HOME AND DENIES NEEDS AT THIS TIME. PT AWARE TO CALL CM SHOULD NEEDS ARISE.
[2016-11-01] MEDS: ALBUTEROL/IPRATROPIUM INHAL. 2.5mg-0.5mg/3ml Neb. AEROSOL SCH ×3 (15:41→19:26)
--- NOTE | 2016-11-01 17:51 | NUR ---
DM Screen Diet order: 2000 calorie consistent carb. BMI: 49.8 Estimated daily calorie needs for weight maintenance: ~2755. Weight loss would be beneficial. RD spoke with patient who said he has lost ~ 100 lbs by eating less and was very frustrated because "they" said he wouldn't need to take as many medications and that hasn't happened. Patient very certain he is not interested in DM ed at this time. RD encouraged patient to have RN call RD if he has nutrition questions.
--- NOTE | 2016-11-01 18:16 | NUR ---
shift status Has a productive cough of thick whitish plegm a small amt obtained for sputum culture up to br tele is afib with cvr with a few pvc.o2 remains at 2 liters. remains on droplet pc for rhino virus.
--- NOTE | 2016-11-01 18:32 | ECHOF ---
DATE OF PROCEDURE November 01, 2016 This is a two-dimensional echo with spectral Doppler, color-flow and M-mode. It was obtained in a patient with pulmonary edema. Left atrium is dilated. Left ventricular end-diastolic dimension is normal. Left ventricular wall thickness is mildly increased. LV systolic function is normal with ejection fraction of 70%. Right atrium is dilated. Right ventricle is normal. Aortic root dimension is normal. Mitral annulus is calcified. Mitral valve leaflets are normal with trace of mitral regurgitation. Aortic valve shows fibrocalcific changes with mild restriction on opening motion. Transaortic velocities are increased with peak velocity of 2.46 m/sec with peak gradient of 24 and mean gradient of 14. Aortic valve area is calculated at 1.60 cm2. Tricuspid valve shows mild tricuspid regurgitation with moderate pulmonary hypertension with estimated pulmonary artery systolic pressure of 46. Pulmonary valve shows no pulmonary insufficiency. There is no pericardial effusion. IMPRESSION 1. Normal LV systolic function with ejection fraction of 70%. 2. Mild left ventricular hypertrophy. 3. Biatrial dilation. 4. Mild mitral annulus calcification with trace of mitral regurgitation. 5. Mild aortic stenosis with a valve area of 1.60 cm2. 6. Mild tricuspid regurgitation with moderate pulmonary hypertension with estimated pulmonary artery systolic pressure of 46. MTDD
[2016-11-01] MEDS: BUDESONIDE INH.SOLN. 0.5mg/2ml NEB AEROSOL SCH (19:26)
[2016-11-01] MEDS: LEVOFLOXACIN 750 MG TABLET PO SCH (20:49)
[2016-11-01] MEDS: SIMVASTATIN 40 MG TABLET PO SCH (20:55)
[2016-11-01] MEDS: INSULIN GLARGINE 100 UNIT/ML SQ SCH (20:56)
[2016-11-02] VITALS (7 sets, daily range): BP systolic 121–159; BP diastolic 72–85; PULSE 90–100; RESP 18–24; TEMP 95.7–96; O2SAT 91–98
[2016-11-02 05:36] LABS: HCT - HEMATOCRIT 38.3 % (41-53); HGB - HEMOGLOBIN 13.1 GM/DL (13.5-17.5); MEAN CORPUSCULAR HGB 30.3 UUG (26-34); MEAN CORPUSCULAR HGB CONC(MCHC 34.2 GM/DL (31-37); MEAN CORPUSCULAR VOLUME 88.7 UM3 (80-100); MEAN PLATELET VOLUME 10.5 UM3 (9.4-12.4); RED BLOOD COUNT 4.32 M/MM3 (4.50-5.90); WBC - WHITE BLOOD COUNT 10.7 T/MM3 (4.5-11.0)
--- NOTE | 2016-11-02 05:46 | NUR ---
Pt rested well during the night. O2 came off for awhile during the night and sats dropped into the 70's. Sats recovered quickly after O2 was replaced.
[2016-11-02 05:48] LABS: ALBUMIN 3.4 G/DL (3.5-5.0); ANION GAP 14 MEQ/L (5-15); BUN/CREATININE RATIO 34 RATIO (6-26); CALCIUM 9.5 MG/DL (8.4-10.2); CHLORIDE 107 MEQ/L (98-107); CO2 - CARBON DIOXIDE 29 MEQ/L (22-30); GLOMERULAR FILTRATION RATE 74; GLUCOSE 106 MG/DL (75-110); PHOSPHORUS 3.8 MG/DL (2.5-4.5); POTASSIUM 3.2 MEQ/L (3.6-5); SODIUM 150 MEQ/L (134-144)
[2016-11-02 06:20] LABS: BAND NEUTROPHILS # 0.3 T/MM3; LYMPHOCYTES # (MANUAL) 1.2 T/MM3 (1-4.8); MONOCYTES # (MANUAL) 0.2 T/MM3 (0-0.8); TOTAL CELLS COUNTED 100 %
[2016-11-02] MEDS: ALBUTEROL/IPRATROPIUM INHAL. 2.5mg-0.5mg/3ml Neb. AEROSOL SCH ×4 (06:47→21:04)
[2016-11-02 08:51] LABS: PROTHROMBIN TIME 49.1 SEC (9.31-12.49)
[2016-11-02 08:58] LABS: INR 4.5 (0.76-1.04)
[2016-11-02] MEDS ORDERED: FUROSEMIDE 40 MG/4 ML INJECTION IV SCH (09:00)
--- NOTE | 2016-11-02 09:08 | DI ---
LOCATION OF DICTATION: [facility] EXAM: CHEST, PA LATERAL HISTORY: ITS.REASON: hypoxia COMPARISON: November 01, 2016 FINDINGS: The heart size is upper limits normal. The mediastinal configuration is unremarkable. There are no consolidating opacities or pleural effusions. There is mild bibasilar atelectasis. There is no evidence for a pneumothorax. The osseous structures are within normal limits. IMPRESSION: Upper limits normal sized heart without CHF or pneumonia. There is mild bibasal atelectasis suggested. .
--- NOTE | 2016-11-02 09:17 | NUR ---
WARFARIN CONSULT S: 66 y/o M on warfarin for afib. Home dose is 8 mg daily. Goal INR 2-3. O: Date INR Warfarin Dose 11/01 4.50 HOLD 11/02 4.50 HOLD A/P: INR supratherapeutic. Drug-drug interaction between warfarin and levofloxacin (increases INR). Will hold warfarin today. Will continue to monitor & make adjustments accordingly. Thank you for the consult. Aidee Ochoa, PharmD, BCPS
[2016-11-02] MEDS: ASPIRIN 81 MG CHEWABLE TABLET PO SCH (09:33)
[2016-11-02] MEDS: INSULIN ASPART 100 UNIT/ML SQ SCH ×3 (09:33→17:57)
[2016-11-02] MEDS: POTASSIUM CHLORIDE 20 MEQ TABLET PO SCH ×3 (09:33→17:56)
[2016-11-02] MEDS: GEMFIBROZIL 600 MG TABLET PO SCH ×2 (09:33→21:15)
[2016-11-02] MEDS: PredniSONE 10 MG TABLET PO SCH (09:34)
[2016-11-02] MEDS: LISINOPRIL 20 MG TABLET PO SCH (09:35)
[2016-11-02] MEDS ORDERED: FUROSEMIDE 20 MG TABLET PO ONE (09:45)
--- NOTE | 2016-11-02 10:17 | NUR ---
CM CM IN TO VISIT WITH PT AND . CM EXPLAINED ROLE AND PROVIDED CONTACT INFORMATION. PT AND FAMILY REQUESTED [facility] AND NEBULIZER PROVIDER SHOULD HE NEED THESE THINGS WHEN HE IS DISMISSED. PT/FAMILY HAVE NO OTHER NEEDS AND THEY ARE AWARE TO CONTACT CM SHOULD NEEDS ARISE.
[2016-11-02] MEDS: BUDESONIDE INH.SOLN. 0.5mg/2ml NEB AEROSOL SCH ×2 (11:19→21:03)
[2016-11-02] MEDS: INSULIN ASPART 100 UNIT/ML SQ PRN ×2 (12:32→21:16)
--- NOTE | 2016-11-02 16:08 | PNPDOC ---
Subjective Date DATE: 11/02/16 TIME: 15:58 Subjective The patient states that he is feeling better today. He states he is coughing up more phlegm. He states he has not is short of breath. He is eating and drinking okay. He denies any pain anywhere. He denies any nausea or vomiting. He is urinating without difficulties and had a bowel movement today. Patient was seen today accompanied by his . Objective Vital Signs Vital signs Vital Signs Date Time Temp Pulse Resp B/P Pulse Ox O2 Delivery O2 Flow Rate FiO2 11/02/16 15:17 95.7 100 24 159/85 91 Nasal Cannula 2.00 GEN-alert and oriented 3, no acute distress HEENT-were anicteric, oropharynx is moist NECK-supple CV-regular rate and rhythm CHEST-and expiratory wheezes in the bases ABD-soft, obese, nontender, nondistended with positive bowel sounds -no Luu EXT-trace pedal and pretibial edema NEURO-no focal deficits SKIN-and dry and without rashes Height (Feet): 5 Height (Inches): 6.00 Weight (Kilograms): 140.500 Laboratory Laboratory Laboratory Tests 10/31/16 18:30 11/01/16 04:57 11/02/16 05:14 Laboratory Tests 10/31/16 18:30 11/01/16 04:57 11/02/16 05:14 INR 4.5 Microbiology Microbiology Microbiology Date/Time Source Procedure Growth Status 11/01/16 12:17 Sputum Expectorated Sputum Gram Stain - Final Resulted 11/01/16 12:17 Sputum Expectorated Sputum Sputum Culture - Preliminary EARLY GROWTH Resulted Radiology Chest x-ray today shows no signs of congestive failure or pneumonia. Mild bibasilar atelectasis Echocardiogram shows LV ejection fraction to be 70%, mild LVH, biatrial dilation , mild aortic stenosis, moderate pulmonary hypertension Assessment & Plan Problems: (1) Acute bronchitis Status: Acute Assessment & Plan: PO levaquin scheduled, is on warfarin will need to monitor his INR carefully on antibiotics. With his Wheezing he has received a dose of Solu-Medrol in the emergency room. I did not order any further dosing, would like to see if Lasix and breathing treatments can do this alone without increasing his sugars and potentially fluid retention. (2) Acute congestive heart failure with left ventricular diastolic dysfunction Status: Acute Assessment & Plan: This is a possible dx right now, but concern with CXR and LE edema this is the case. Echocardiogram in 2015 demonstrated EF of 75%, chest x-ray appears consistent with pulmonary vascular congestion, formal interp pending and with body habitus this could be making it look more like edema than it is. There is a confounder of his history of smoking and some green sputum as well. He will received a dose of IV Lasix a concern with a history of coronary disease and edema that he could have perhaps a new process. Certainly treating him as he has heart failure for the moment, superimposed upon a bronchitis. We will repeat echocardiogram at morning and will rule out for myocardial infarction with serial enzymes. (3) Hypoxia Status: Acute Assessment & Plan: Probably due to a combination of bronchitis and congestive heart failure. See above. Repeat echocardiogram in spirometry I think appropriate (4) CAD (coronary artery disease) Status: Chronic Assessment & Plan: I do not have details as to his anatomy etc. stress test. May not be a bad idea to update this depending on how he does tomorrow with the treatments recommended above and depending on his echocardiogram. (5) HTN (hypertension) Status: Chronic (6) Afib Status: Chronic Assessment & Plan: Appears rate controlled, had been on metoprolol the past. INR is therapeutic (7) Uncontrolled type 2 diabetes mellitus with complication Status: Chronic Assessment & Plan: home insulin 17 units NovoLog with meals and 44 units of Lantus will continue along with correctional dose with him receiving a dose of steroids in the emergency room. 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 Assessment 11/02/2016 Impression Rhinovirus infection Acute hypoxic respiratory failure Bronchitis (likely from rhinovirus) with COPD exacerbation Possible mild exacerbation of heart failure-echocardiogram is stable other than pulmonary hypertension being now in the moderate range at 46 up from 41. He was also seen to have mild aortic stenosis which is new. Moderate pulmonary hypertension Type 2 diabetes mellitus, currently poorly controlled Supratherapeutic INR in a patient on Coumadin-Coumadin on hold Atrial fibrillation-rate controlled Obesity Hypernatremia Coronary artery disease-asymptomatic Hypertension Hyperlipidemia Plan Continue supportive care for rhinovirus infection with suspected COPD exacerbation. Continue oxygen, breathing treatments, steroids. Add incentive spirometer for atelectasis. Continue to hold Coumadin for supratherapeutic INR Sputum culture is pending but early growth is present. Continue Levaquin for now for COPD exacerbation CBC and basic metabolic profile tomorrow. Continue daily INR. PT eval and treat. Continue to monitor Accu-Cheks and give scheduled and supplemental insulin Echocardiogram, labs, x-rays all reviewed with the patient and his and care plan discussed with him at length. Questions and concerns answered to their apparent satisfaction. Greater than 35 minutes of time was spent seeing and evaluating the patient, determining care plan and updating patient and family. DVT Prophylaxis: Coumadin Code Status Full Code Hospital Course Summary Disclaimer The hospital course summary below is not to be considered part of the above Progress Note. Hospital Course Summary 11/01/2016-Dr. Shelton I have seen and examined the patient independently. I've reviewed the H&P above and agree. Please see my additions below. Chief complaint: Shortness of breath History of present illness: The patient states that he's been short of breath since last Tuesday which would be approximately 5 days. He is also had a productive cough with green phlegm which is new to him. He has also had new pedal edema. He states he was very short of breath especially with activity. He presented to the emergency room last night and was started on oxygen and received a breathing treatment IV Solu-Medrol and IV Lasix. He states this morning he feels much better. He denies having any chest pains or pressure. He denies any headache or abdominal pain. He states he was constipated and then took some Dulcolax and then had diarrhea last night. He denies any nausea or vomiting. He has diabetes and states he checks his blood sugar about once a week even though he was told to check it 5 times a day. He denies any other complaints at this time. Past medical history is significant for diabetes, history of CVA, atrial fibrillation, hypertension, coronary artery disease with history of NC, and hyperlipidemia. He has occasional gout in his left foot. None now. Past Echocardiogram showed diastolic dysfunction. Patient is on Lasix daily. Social history reveals the patient to be and he formerly smoked but quit 20 years ago Comprehensive review of systems is negative other than the above in history of present illness Physical exam Patient is afebrile and vital signs are stable. He is on 2 L of oxygen. The patient is alert and oriented 3 and in no acute distress. HEENT reveals sclerae to be anicteric and oropharynx is moist. Neck is supple. Carotids are silent. Chest reveals some decreased breath sounds in the bases but no wheezes, rhonchi or crackles. Cardiovascular reveals an irregularly irregular rhythm with a well-controlled rate. No murmur. Abdomen is obese, soft, nontender, nondistended with positive bowel sounds. Extremities reveal trace pedal and pretibial edema. Skin is warm and dry and without rashes. Lab today shows sodium of 147 down from 150, BUN 27, creatinine 0.8 up from 0.7. Glucose 288. Troponin normal 3. White count is 7.7 down from 8.8. Hemoglobin 12.9. Neutrophils 89% and bands 1%. INR is elevated at 4.5 up from 3.87 ProBNP yesterday was 2880 and when last checked in 2014 was 840 and 911 Chest x-ray today shows cardiomegaly without overt CHF. Lungs are clear without pneumonia or signs of edema. Impression Acute hypoxic respiratory failure Bronchitis with possible COPD exacerbation Possible mild exacerbation of heart failure. Type 2 diabetes mellitus, currently poorly controlled Supratherapeutic INR in a patient on Coumadin Atrial fibrillation-rate controlled Obesity Hypernatremia-improved Coronary artery disease Hypertension Hyperlipidemia Plan Await echocardiogram, decrease IV Lasix to once daily. Continue supplemental oxygen as needed. Continue breathing treatments. Change to oral prednisone. Hold Coumadin for now and consult pharmacy for Coumadin management Check hemoglobin A1c and TSH Recheck CBC and basic metabolic profile tomorrow Obtain sputum culture and viral respiratory panel MILTON SHELTON MD November 02, 2016 16:01
--- NOTE | 2016-11-02 18:00 | NUR ---
shift status remains on 2 liters of 02 states cough is more productive today still has some upper airway wheezing. uses i.s remains in a fib with cvr blood sugars are improved today. gets a little soa on exertion.
[2016-11-02] MEDS: LEVOFLOXACIN 750 MG TABLET PO SCH (19:42)
[2016-11-02] MEDS: SIMVASTATIN 40 MG TABLET PO SCH (21:16)
[2016-11-02] MEDS: INSULIN GLARGINE 100 UNIT/ML SQ SCH (21:18)
[2016-11-03] VITALS (8 sets, daily range): BP systolic 120–157; BP diastolic 71–99; PULSE 86–121; RESP 18–20; TEMP 95.2–96.2; O2SAT 92–99
[2016-11-03 05:22] LABS: BASOPHILS % (AUTO) 0.2 % (0-2); EOSINOPHILS % (AUTO) 0.2 % (0-4); HCT - HEMATOCRIT 38.9 % (41-53); IMMATURE GRANULOCYTE # (AUTO) 0.06 T/MM3 (0.00-0.03); IMMATURE GRANULOCYTE % (AUTO) 0.6 % (0.0-0.5); LYMPHOCYTES % (AUTO) 19.5 % (23-45); MEAN CORPUSCULAR HGB CONC(MCHC 33.4 GM/DL (31-37); MEAN CORPUSCULAR VOLUME 89.6 UM3 (80-100); MEAN PLATELET VOLUME 10.7 UM3 (9.4-12.4); MONOCYTES # (AUTO) 0.7 T/MM3 (0-0.8); MONOCYTES % (AUTO) 6.9 % (0-9.0); NEUTROPHILS #(AUTO)-ABSOLUTE 7.5 T/MM3 (1.8-7.7); NEUTROPHILS % (AUTO) 72.6 % (33-66); RED BLOOD COUNT 4.34 M/MM3 (4.50-5.90); WBC - WHITE BLOOD COUNT 10.4 T/MM3 (4.5-11.0)
[2016-11-03 05:34] LABS: ANION GAP 12 MEQ/L (5-15); BUN/CREATININE RATIO 31 RATIO (6-26); CHLORIDE 107 MEQ/L (98-107); CO2 - CARBON DIOXIDE 30 MEQ/L (22-30); CREATININE 0.9 MG/DL (0.8-1.5); GLOMERULAR FILTRATION RATE 84; GLUCOSE 70 MG/DL (75-110); POTASSIUM 3.8 MEQ/L (3.6-5); SODIUM 149 MEQ/L (134-144)
[2016-11-03 05:40] LABS: INR 2.9 (0.90-1.23); PROTHROMBIN TIME 32.8 SEC (10.8-13.8)
--- NOTE | 2016-11-03 05:49 | NUR ---
SHIFT SUMMARY: PT IS A&OX3, FRIENDLY AND COOPERATIVE, ON 2L OXYGEN NC, UP AT ASTRID, ON DROPLET PRECAUTIONS FOR RHINO VIRUS, Q8 VITALS, IV LOCKED, HAS BGM'S, CALL LIGHT WITHIN REACH.
[2016-11-03] MEDS: ALBUTEROL/IPRATROPIUM INHAL. 2.5mg-0.5mg/3ml Neb. AEROSOL SCH ×3 (07:20→15:50)
[2016-11-03] MEDS ORDERED: GEMFIBROZIL 600 MG TABLET PO SCH (07:30)
[2016-11-03] MEDS: BUDESONIDE INH.SOLN. 0.5mg/2ml NEB AEROSOL SCH (07:39)
[2016-11-03] MEDS: ASPIRIN 81 MG CHEWABLE TABLET PO SCH (08:02)
[2016-11-03] MEDS: PredniSONE 10 MG TABLET PO SCH (08:03)
[2016-11-03] MEDS: LISINOPRIL 20 MG TABLET PO SCH (08:03)
[2016-11-03] MEDS: INSULIN ASPART 100 UNIT/ML SQ SCH ×2 (08:18→12:00)
[2016-11-03] MEDS ORDERED: FUROSEMIDE 20 MG TABLET PO SCH (09:00)
--- NOTE | 2016-11-03 09:30 | NUR ---
COUMADIN CONSULT (Recurring): Today's INR = 2.90. Will give Warfarin 4 mg today. Will continue to monitor & make adjustments accordingly. Thank you.
[2016-11-03] MEDS ORDERED: WARFARIN 4 MG TABLET PO SCH (12:00)
--- NOTE | 2016-11-03 13:09 | NUR ---
BGM NOTIFIED DR. SHELTON OF PATIENT'S LUNCH CONSUMPTION, BGM BEFORE AND AT LUNCH TIME. ORDERS RECEIVED.
[2016-11-03] MEDS ORDERED: INSULIN ASPART 100 UNIT/ML SQ ONE (13:15)
[2016-11-03] MEDS ORDERED: LEVO750T20 PO (15:19)
[2016-11-03] MEDS ORDERED: ALBU2.5V7 AEROSOL (15:19)
[2016-11-03] MEDS ORDERED: IPRA3AMP AEROSOL (15:19)
[2016-11-03] MEDS ORDERED: POTA-81 PO (15:19)
[2016-11-03] MEDS ORDERED: INSU100V13 SQ (15:19)
[2016-11-03] MEDS ORDERED: PRED10TA PO (15:19)
--- NOTE | 2016-11-03 15:53 | DSPDOC ---
General Date Date DATE: 11/03/16 TIME: 15:31 Attending Physician Ellie Tripathi MD Admitting Physician Ellie Tripathi MD Consulting Physician None Admitting Diagnosis Hypoxia, CHF Discharge Diagnosis Acute hypoxic respiratory failure Rhinovirus infection COPD exacerbation Possible mild acute diastolic heart failure Bronchitis A. fib chronic-rate controlled Uncontrolled type 2 diabetes mellitus obesity Hypernatremia Hypokalemia Coronary artery disease Moderate pulmonary hypertension Mild aortic stenosis Procedures Spirometry was obtained which revealed an FVC of 62% of predicted, FEV1 of 56% of predicted, FEV1 to FVC 89% of predicted. FEV1 was 1.59. Patient did show improvement postbronchodilator Laboratory Item Value Date Time Prothromb Time International Ratio 2.90 H 11/03/16 0454 Prothromb Time International Ratio 4.50 *H 11/02/16 0836 Prothromb Time International Ratio 4.50 *H 11/01/16 0457 Prothromb Time International Ratio 3.87 H 10/31/16 1829 Enterovirus/Rhinovirus (PCR) Detected A 11/01/16 1114 Laboratory Tests Test 11/02/16 05:14 11/02/16 06:04 11/02/16 08:36 11/02/16 11:08 White Blood Count 10.7T/MM3 (4.5-11.0) Red Blood Count 4.32M/MM3 (4.50-5.90) Hemoglobin 13.1GM/DL (13.5-17.5) Hematocrit 38.3% (41-53) Mean Corpuscular Volume 88.7UM3 (80-100) Mean Corpuscular Hemoglobin 30.3UUG (26-34) Mean Corpuscular Hemoglobin Concent 34.2GM/DL (31-37) RDW Standard Deviation 43.2FL (36.9-50.2) Platelet Count 219T/MM3 (130-400) Mean Platelet Volume 10.5UM3 (9.4-12.4) Neutrophils % (Manual) 84.0% (33-66) Band Neutrophils % 3.0% (0-6) Lymphocytes % (Manual) 11.0% (23-45) Monocytes % (Manual) 2.0% (0-9.0) Absolute Neutrophils (Manual) 9.0T/MM3 (1.8-7.7) Band Neutrophils # 0.3T/MM3 Lymphocytes # (Manual) 1.2T/MM3 (1-4.8) Monocytes # (Manual) 0.2T/MM3 (0-0.8) Red Cell Morphology Comment Normal Turbidity < 20 (0-20) Sodium Level 150MEQ/L (134-144) Potassium Level 3.2MEQ/L (3.6-5) Chloride Level 107MEQ/L (98-107) Carbon Dioxide Level 29MEQ/L (22-30) Anion Gap 14MEQ/L (5-15) Blood Urea Nitrogen 34.0MG/DL (9-20) Creatinine 1.0MG/DL (0.8-1.5) Glomerular Filtration Rate Calc 74 BUN/Creatinine Ratio 34RATIO (6-26) Glucose Level 106MG/DL (75-110) Calculated Osmolality 296MOSM/KG (261-280) Calcium Level 9.5MG/DL (8.4-10.2) Phosphorus Level 3.8MG/DL (2.5-4.5) Icterus Index < 2 (0-7) Albumin 3.4G/DL (3.5-5.0) Chemistry Specimen Hemolysis < 15 (0-25) Glucometer 94mg/dL (75-110) 174mg/dL (75-110) Prothromb Time International Ratio 4.50 (0.76-1.04) Test 11/02/16 17:03 11/02/16 20:55 11/03/16 04:45 11/03/16 04:54 Glucometer 142mg/dL (75-110) 157mg/dL (75-110) White Blood Count 10.4T/MM3 (4.5-11.0) Red Blood Count 4.34M/MM3 (4.50-5.90) Hemoglobin 13.0GM/DL (13.5-17.5) Hematocrit 38.9% (41-53) Mean Corpuscular Volume 89.6UM3 (80-100) Mean Corpuscular Hemoglobin 30.0UUG (26-34) Mean Corpuscular Hemoglobin Concent 33.4GM/DL (31-37) RDW Standard Deviation 44.6FL (36.9-50.2) Platelet Count 223T/MM3 (130-400) Mean Platelet Volume 10.7UM3 (9.4-12.4) Immature Granulocyte % (Auto) 0.6% (0.0-0.5) Neutrophils (%) (Auto) 72.6% (33-66) Lymphocytes (%) (Auto) 19.5% (23-45) Monocytes (%) (Auto) 6.9% (0-9.0) Eosinophils (%) (Auto) 0.2% (0-4) Basophils (%) (Auto) 0.2% (0-2) Absolute Immature Granulocyte (auto 0.06T/MM3 (0.00-0.03) Absolute Neutrophils (auto) 7.5T/MM3 (1.8-7.7) Absolute Lymphocytes (auto) 2.0T/MM3 (1-4.8) Absolute Monocytes (auto) 0.7T/MM3 (0-0.8) Absolute Eosinophils (auto) 0.0T/MM3 (0-0.5) Absolute Basophils (auto) 0.0T/MM3 (0-0.2) Turbidity < 20 (0-20) Sodium Level 149MEQ/L (134-144) Potassium Level 3.8MEQ/L (3.6-5) Chloride Level 107MEQ/L (98-107) Carbon Dioxide Level 30MEQ/L (22-30) Anion Gap 12MEQ/L (5-15) Blood Urea Nitrogen 28.0MG/DL (9-20) Creatinine 0.9MG/DL (0.8-1.5) Glomerular Filtration Rate Calc 84 BUN/Creatinine Ratio 31RATIO (6-26) Glucose Level 70MG/DL (75-110) Calculated Osmolality 290MOSM/KG (261-280) Calcium Level 9.0MG/DL (8.4-10.2) Icterus Index < 2 (0-7) Chemistry Specimen Hemolysis < 15 (0-25) Prothromb Time International Ratio 2.90 (0.90-1.23) Test 11/03/16 06:00 Glucometer 69mg/dL (75-110) Microbiology Microbiology Date/Time Source Procedure Growth Status 11/01/16 12:17 Sputum Expectorated Sputum Gram Stain - Final Resulted 11/01/16 12:17 Sputum Expectorated Sputum Sputum Culture - Preliminary EARLY GROWTH Resulted Radiology Echocardiogram IMPRESSION 1. Normal LV systolic function with ejection fraction of 70%. 2. Mild left ventricular hypertrophy. 3. Biatrial dilation. 4. Mild mitral annulus calcification with trace of mitral regurgitation. 5. Mild aortic stenosis with a valve area of 1.60 cm2. 6. Mild tricuspid regurgitation with moderate pulmonary hypertension with estimated pulmonary artery systolic pressure of 46. Chest x-ray on admission 10/31/2016 Findings: There is cardiomegaly and pulmonary vascular congestion without overt interstitial pulmonary edema. No pleural effusion. No pneumothorax. Trachea is midline. There is moderate calcification of the transverse thoracic aorta without significant tortuosity of the descending thoracic aorta. Impression: Cardiomegaly and pulmonary vascular congestion without overt CHF. Chest x-ray 11/01/2016 showed cardiomegaly without overt CHF Chest x-ray 11/02/2016 showed upper limits of normal sized heart without CHF or pneumonia. There is mild bibasilar atelectasis suggested History of Present Illness 66-year-old white male presents to the emergency room with 3-4 days of progressive shortness of breath and dyspnea on exertion. He has had a slightly productive cough of green sputum, was found in the emergency room to be satting 88% saturation on room air. Satting in the low 90s on 2-3 L there. He described himself as feeling "clammy in the chest", he is coughing up phlegm. He denies having edema in his legs though we will reexamine his does notice that he is more swollen than usual. He denies any significant salty dietary indiscretions and he denies chest pain. He did have some fever chills 2 nights ago subjective. His has had some cold symptoms and they thought it was probably similar. He was wheezing in the breathing treatment he received in the emergency room helped. He also received potassium chloride and Solu-Medrol in the emergency room. He denies any history of congestive heart failure. He has had 2 heart attacks in the past that was 20 years ago there were 2 years apart he denies percutaneous intervention. He has not had a stress test sometime he is supposed to see his sew out operator this Tuesday who he follows for A. fib among other things. He denies focal numbness tingling or weakness. He denies any urinary symptoms. He has been constipated intermittently. He does snore but denies ever being tested for sleep apnea. Hospital Course The patient was admitted on 10/31/2016 with shortness of breath and cough. He was found to have acute hypoxic respiratory failure. He was coughing up green phlegm. Sputum culture was obtained and is currently pending and at this time shows early growth. Chest x-ray did not show any obvious pneumonia. The patient is on Levaquin for presumed COPD exacerbation. He was started on oral steroids after an initial dose of IV Solu-Medrol. He has received 3 doses of Levaquin and will receive 2 more days of Levaquin at discharge. Viral respiratory panel was positive for rhinovirus. The patient was hypoxic during the hospital course but on 11/03/2016 was no longer requiring supplemental oxygen. He was walking in the halls and O2 saturations were in the 90s on room air. He was up walking and no longer feeling short of breath. The patient did have spirometry done in the hospital which did show a lower than predicted FEV1 and FEV1 to FVC ratio. The patient did receive IV Lasix on admission because of questionable edema on chest x-ray as well as increasing lower extremity edema and elevated proBNP compared to baseline. Lower extremity edema did resolve at discharge. The patient had low potassium on admission and received oral potassium replacement. He will be on oral potassium 20 mEq once daily. The patient had supratherapeutic INR on admission. Coumadin was held until the day of discharge. On 11/03/2016 the patient was feeling well and cough was improved. Wheezing had resolved on lung auscultation. He was no longer hypoxic even with ambulation. Was felt that he was stable for discharge to home. The patient did have chronic atrial fibrillation and rate remained well-controlled during the hospital course. The patient did have mildly low blood sugar during the hospital course and insulin with meals was decreased to 10 units. He will need to monitor his Accu- Cheks more closely at home. A1c here in the hospital is 9.4. The patient will be discharged to home on DuoNeb breathing treatments 4 times a day and when necessary. He will be given a prescription for a nebulizer. He will have 2 more days of Levaquin 750 mg once daily. He will have 3 days of prednisone 30 mg daily in the morning. He will have a new prescription for potassium 20 mEq once daily. He is to follow-up and have a basic metabolic profile and INR this coming Tuesday. He is to follow-up with Dr. Henry in the next 1 week. I did call and talk with Dr. Cosby regarding hospital course and discharge plans. There is an 30 minutes of time was spent on dismissal day. Problems: (1) Acute bronchitis Status: Acute Assessment & Plan: PO levaquin scheduled, is on warfarin will need to monitor his INR carefully on antibiotics. With his Wheezing he has received a dose of Solu-Medrol in the emergency room. I did not order any further dosing, would like to see if Lasix and breathing treatments can do this alone without increasing his sugars and potentially fluid retention. (2) Acute congestive heart failure with left ventricular diastolic dysfunction Status: Acute Assessment & Plan: This is a possible dx right now, but concern with CXR and LE edema this is the case. Echocardiogram in 2015 demonstrated EF of 75%, chest x-ray appears consistent with pulmonary vascular congestion, formal interp pending and with body habitus this could be making it look more like edema than it is. There is a confounder of his history of smoking and some green sputum as well. He will received a dose of IV Lasix a concern with a history of coronary disease and edema that he could have perhaps a new process. Certainly treating him as he has heart failure for the moment, superimposed upon a bronchitis. We will repeat echocardiogram at morning and will rule out for myocardial infarction with serial enzymes. (3) Hypoxia Status: Acute Assessment & Plan: Probably due to a combination of bronchitis and congestive heart failure. See above. Repeat echocardiogram in spirometry I think appropriate (4) CAD (coronary artery disease) Status: Chronic Assessment & Plan: I do not have details as to his anatomy etc. stress test. May not be a bad idea to update this depending on how he does tomorrow with the treatments recommended above and depending on his echocardiogram. (5) HTN (hypertension) Status: Chronic (6) Afib Status: Chronic Assessment & Plan: Appears rate controlled, had been on metoprolol the past. INR is therapeutic (7) Uncontrolled type 2 diabetes mellitus with complication Status: Chronic Assessment & Plan: home insulin 17 units NovoLog with meals and 44 units of Lantus will continue along with correctional dose with him receiving a dose of steroids in the emergency room. 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 DVT Prophylaxis: Coumadin Code Status Full Code Home Meds Active Scripts Potassium Chloride (Potassium Chloride) 20 Meq Tablet.er, 20 MEQ PO WB, #30 TAB Take 1 tablet, by mouth, daily with breakfast. Prov:ELLIE TRIPATHI MD 11/03/16 Prednisone (Prednisone) 10 Mg Tablet, 30 MG PO WB for 3 Days, #9 TAB Take 1 tablet, by mouth, once a day with breakfast. Prov:ELLIE TRIPATHI MD 11/03/16 Ipratropium/Albuterol Sulfate (Iprat-Albut 0.5-3(2.5) mg/3 ml) 3 Ml Ampul.neb, 3 ML AEROSOL QID, #1 BOX Prov:ELLIE TRIPATHI MD 11/03/16 Albuterol Sulfate (Albuterol Sulfate) 2.5 Mg/3 Ml Vial.neb, 2.5 MG AEROSOL Q4H Y for wheezing, #1 BOX Prov:ELLIE TRIPATHI MD 11/03/16 Levofloxacin (Levaquin) 750 Mg Tablet, 750 MG PO 20, #2 TAB Prov:ELLIE TRIPATHI MD 11/03/16 Insulin Aspart (Novolog) 100 Unit/Ml Inj, 10 UNIT SQ TIDWM, #1 APPLICATOR Prov:ELLIE TRIPATHI MD 11/03/16 Reported Medications Insulin Glargine,Hum.rec.anlog (Lantus) 100 Unit/Ml Inj, 47 UNIT SQ HS 10/31/16 Warfarin Sodium (Warfarin Sodium) 1 Mg Tablet, 3 MG PO DAILY TAKE WITH 5 MG TO EQUAL 8 MG DAILY 10/31/16 Simvastatin (Simvastatin) 40 Mg Tablet, 20 MG PO HS 10/31/16 Aspirin (Aspirin) 81 Mg Tab.chew, 81 MG PO DAILY 07/12/16 Nitroglycerin (Nitroglycerin) 0.4 Mg Tab.subl, 0.4 MG SL Q5MIN Y for CHEST PAIN 07/12/16 Metoprolol Tartrate (Metoprolol Tartrate) 50 Mg Tablet, 50 MG PO BIDWM 12/13/14 Furosemide (Lasix) 20 Mg Tablet, 20 MG PO DAILY 12/13/14 Warfarin Sodium (Warfarin Sodium) 5 Mg Tablet, 8 MG PO NOON TAKE WITH 3 MG TO EQUAL 8 MG DAILY 12/13/14 Gemfibrozil (Gemfibrozil) 600 Mg Tablet, 600 MG PO BID 12/13/14 Lisinopril (Lisinopril) 20 Mg Tablet, 20 MG PO DAILY 12/13/14 Face to Face Encounter I met with patient on the day of dismissal and discussed follow up appointments , medications, and safety plan. Discharge Disposition Dismiss to home with family in stable condition Copies To 1: CORNELIUS COSBY MD, STEPHANIE L MD November 03, 2016 15:44
--- NOTE | 2016-11-03 16:20 | NUR ---
DISCHARGE DISCHARGE INSTRUCTIONS EXPLAINED TO PATIENT. PT WEANED OFF O2 TODAY, AMBULATED WITHOUT O2, SOME SOA NOTED, BUT O2 REMAINED >90% ON RA. PT EDUCATED ON HYPOXIA. ALFRED EXPLAINED NEBULIZER TO PATIENT AND HOW TO USE. SCRIPTS CALLED TO PHARMACY. IVL IN RIGHT EXTREMITY DC'D. NO IVL IN THE LEFT SIDE. PT BELONGINGS PACKED AND PATIENT DRESSED. MEDS SENT WITH PATIENT. PT ASSISTED OUT TO CAR WITH VIA WHEELCHAIR. PACKET PROVIDED TO PATIENT. ID BAND REMOVED. Addendum: 11/03/16 at 1658 by CAROL KWOK RN HOME MEDS SENT WITH PATIENT.
== END 2016-11-03 16:20 | disposition home or self-care (01) | DRG 190 ==
LOC: ED 17:36 → EDHOLD 19:18 → MED 20:10
PROVIDERS: ADMIT Pediatrics; ATTEND Internal Medicine
DX: J44.1 Chronic obstructive pulmonary disease with (acute) exacerbation (principal); I50.31 Acute diastolic (congestive) heart failure; J96.01 Acute respiratory failure with hypoxia; E87.0 Hyperosmolality and hypernatremia; I11.0 Hypertensive heart disease with heart failure; E11.9 Type 2 diabetes mellitus without complications; I48.91 Unspecified atrial fibrillation; I25.10 Atherosclerotic heart disease of native coronary artery without angina pectoris; E78.5 Hyperlipidemia, unspecified; E11.65 Type 2 diabetes mellitus with hyperglycemia; B34.8 Other viral infections of unspecified site; I27.2 Other secondary pulmonary hypertension; I35.0 Nonrheumatic aortic (valve) stenosis; Z79.01 Long term (current) use of anticoagulants; Z79.82 Long term (current) use of aspirin; Z79.4 Long term (current) use of insulin
CPT/HCPCS: 36415; 36416; 80048; 80053; 80069; 82948; 83036; 83735; 83880; 84443; 84484; 85007; 85025; 85027; 85610; 87070; 87147; 87205; 87486; 87581; 87633; 87798; 93005; 93306; 94060; 94640; 94761

== ENCOUNTER → 2016-11-17 | Outpatient (CLI) | payer MEDICARE ==
[~2016-11-17] VITALS: Ht 167.6 cm; Wt 142.9 kg
[~2016-11-17] MED LIST changes: +ALBU2.5V7 AEROSOL; -INSU100I3 SQ; +INSU100V13 SQ; +IPRA3AMP AEROSOL; +LEVO750T20 PO; +POTA-81 PO; +PRED10TA PO; -SIMV20TA6 PO; +SIMV40TA5 PO; +WARF1TAB6 PO
== END ==
LOC: RC 07:40
PROVIDERS: ATTEND Family Medicine
DX: Z87.09 Personal history of other diseases of the respiratory system (principal); J98.8 Other specified respiratory disorders
CPT/HCPCS: 94060; 94726